=== PATIENT | female | born 1965 | race Caucasian/White ===

== ENCOUNTER 2017-07-07 11:08 | Inpatient (IN) | payer MEDICARE ==
[2017-07-07 12:59] LABS: Hematocrit 40 % (35-47); Hemoglobin 13.7 g/dl (12.0-16.0); Mean Corpuscular HGB Conc 34 g/dl (31-36); Mean Corpuscular Hemoglobin 29 pg (27-31); Mean Corpuscular Volume 84 fL (80-97); Mean Platelet Volume 8 um3 (7.4-10.4); Red Blood Count 4.77 10^6/ul (4.0-5.4); Red Cell Distribution Width 14 % (10.5-15); White Blood Count 9.6 10^3/ul (3.5-10.8)
[2017-07-07 13:06] LABS: Urine Bacteria 1+ (Absent); Urine Bilirubin Negative (Negative); Urine Glucose Negative (Negative); Urine Nitrite Negative (Negative)
[2017-07-07 13:10] LABS: Albumin 4.8 g/dL (3.2-5.2); BUN/Creatinine Ratio 18.8 (8-20); Calcium 10.1 mg/dL (8.6-10.3); EGFR African American 114.5 (>60); Globulin 3.3 g/dL (2-4); Magnesium 2.2 mg/dL (1.9-2.7); Potassium 3.3 mmol/L (3.5-5.0); Total Bilirubin 0.5 mg/dL (0.2-1.0); Total Protein 8.1 g/dL (6.4-8.9)
--- NOTE | 2017-07-07 13:27 | RAD ---
HISTORY: Suprapubic pain COMPARISONS: None VIEWS: Frontal views of the abdomen. FINDINGS: BOWEL: There is a nonobstructive bowel gas pattern. There is a large amount of stool within the colon. CALCULI: Calcifications are noted in the right hemipelvis, possibly related to calcified uterine fibroid BONES AND SOFT TISSUES: There are no osseous abnormalities. OTHER FINDINGS: The lung bases are clear. There is no subphrenic gas. IMPRESSION: 1. NONOBSTRUCTIVE BOWEL GAS PATTERN. LARGE AMOUNT STOOL WITHIN THE COLON. 2. RIGHT PELVIC CALCIFICATION, POSSIBLY RELATED TO CALCIFIED UTERINE FIBROID
[2017-07-07 13:44] LABS: TSH (Thyroid Stimulating Horm) 5.11 mcIU/mL (0.34-5.60)
[2017-07-07] MEDS ORDERED: Magnesium CITRATE* 300 ML BTL PO ONE (13:57)
--- NOTE | 2017-07-07 15:05 | ED ---
Kaushal Orozco Thomas, scribed for Alok Osman MD on 07/07/17 at 1216 . GI/ HPI - HPI Summary HPI Summary: The pt is a 51 y/o F presenting to the ED c/o urinary urgency with decreased urine production that began two days ago. She has been constipated for the last week, but this is normal for her. She says that she normally needs laxatives to defecate, and she has not yet taken laxatives for this constipation. She denies any abdominal pain separate from her inability to void. Pt additionally c/o generalized malaise, weakness, and vomiting (yesterday). Pt denies dysuria and nausea. PMHx: HTN. PSHx: appendectomy (2014). SHx: former smoker, occasional alcohol use, no illicit drug use. She is accompanied by two family members. - History of Current Complaint Chief Complaint: EDGeneral Time Seen by Provider: 07/07/17 11:27 Stated Complaint: WEAKNESS Hx Obtained From: Patient, Family/Chemistry Technician - two family members present Onset/Duration: Started Days Ago - onset two days ago, Still Present Timing: Constant Severity: Severe Pain Intensity: 2 Pain Characteristics: Other: - Pain associated with urinary urgency Associated Signs and Symptoms: Positive: Weakness, Vomiting - yesterday (none in the ED), Constipation - for the last week, and this is normal for her, Other : - POS: generalized malaise, urinary urgency. Negative: Nausea, Dysuria Aggravating Factor(s): Nothing Alleviating Factor(s): Nothing - Allergy/Home Medications Allergies/Adverse Reactions: Allergies Allergy/AdvReac Type Severity Reaction Status Date / Time Paroxetine [From Paxil] Allergy See Comment Verified 07/07/17 11:36 Home Medications: Home Medications Baclofen TAB* [Lioresal TAB*] 10 mg PO BID 07/07/17 [History Confirmed 07/07/17] FLUoxetine CAP* [Prozac CAP*] 1 cap PO .QAM 07/07/17 [History Confirmed 07/07/17 ] Gabapentin CAP(*) [Neurontin 300 CAP(*)] 300 mg PO TID 07/07/17 [History Confirmed 07/07/17] PMH/Surg Hx/FS Hx/Imm Hx Previously Healthy: No Endocrine/Hematology History: Denies: Hx Diabetes, Hx Thyroid Disease Cardiovascular History: Reports: Hx Hypertension Denies: Hx Pacemaker/ICD Respiratory History: Denies: Hx Asthma, Hx Chronic Obstructive Pulmonary Disease (COPD) GI History: Denies: Hx Ulcer History: Denies: Hx Renal Disease Sensory History: Denies: Hx Hearing Aid Psychiatric History: Denies: Hx Panic Disorder - Surgical History Surgery Procedure, Year, and Place: APPENDIX FALL 2014 Infectious Disease History: No Infectious Disease History: Denies: Hx Clostridium Difficile, Hx Hepatitis, Hx Human Immunodeficiency Virus (HIV), Hx of Known/Suspected MRSA, Hx Shingles, Hx Tuberculosis, Hx Known/ Suspected VRE, Hx Known/Suspected VRSA, History Other Infectious Disease, Traveled Outside the [place] in Last 30 Days - Family History Known Family History: Positive: Hypertension - Social History Alcohol Use: Occasionally Substance Use Type: Reports: None Substance Use Comment - Amount & Last Used: tramadol Smoking Status (MU): Former Smoker Have You Smoked in the Last Year: No Review of Systems Positive: Other - POS: generalized malaise Positive: Other - POS: constipation for the last week. Negative: Nausea Positive: urgency, other - POS: decreased urine production. Negative: dysuria Positive: Weakness All Other Systems Reviewed And Are Negative: Yes Physical Exam Triage Information Reviewed: Yes Vital Signs On Initial Exam: Initial Vitals Temp Pulse Resp BP Pulse Ox 99.4 F 77 16 141/72 96 07/07/17 11:25 07/07/17 11:25 07/07/17 11:25 07/07/17 11:25 07/07/17 11:25 Vital Signs Reviewed: Yes Appearance: Positive: Well-Appearing, No Pain Distress, Obese Skin: Positive: Warm, Skin Color Reflects Adequate Perfusion, Dry Head/Face: Positive: Normal Head/Face Inspection Eyes: Positive: Normal ENT: Positive: Normal ENT inspection Neck: Positive: Supple, Nontender Respiratory/Lung Sounds: Positive: Clear to Auscultation, Breath Sounds Present Cardiovascular: Positive: RRR Abdomen Description: Positive: Soft, Other: - She is tender in the lower abd and suprapubic area. Bowel Sounds: Positive: Present Musculoskeletal: Positive: Normal Neurological: Positive: Normal Psychiatric: Positive: Normal, Affect/Mood Appropriate - [place] Coma Scale Coma Scale Total: 15 Diagnostics - Vital Signs Vital Signs Temp Pulse Resp BP Pulse Ox 07/07/17 11:25 99.4 F 77 16 141/72 96 - Laboratory Lab Results: Lab Results 07/07/17 07/07/17 07/07/17 Range/Units 11:50 12:39 12:39 WBC 9.6 (3.5-10.8) 10^3/ul RBC 4.77 (4.0-5.4) 10^6/ul Hgb 13.7 (12.0-16.0) g/dl Hct 40 (35-47) % MCV 84 (80-97) fL MCH 29 (27-31) pg MCHC 34 (31-36) g/dl RDW 14 (10.5-15) % Plt Count 267 (150-450) 10^3/ul MPV 8 (7.4-10.4) um3 Neut % (Auto) 79.2 (38-83) % Lymph % (Auto) 14.2 L (25-47) % [place] % (Auto) 6.0 (1-9) % Eos % (Auto) 0.2 (0-6) % Baso % (Auto) 0.4 (0-2) % Absolute Neuts (auto) 7.6 (1.5-7.7) 10^3/ul Absolute Lymphs (auto) 1.4 (1.0-4.8) 10^3/ul Absolute Monos (auto) 0.6 (0-0.8) 10^3/ul Absolute Eos (auto) 0 (0-0.6) 10^3/ul Absolute Basos (auto) 0 (0-0.2) 10^3/ul Absolute Nucleated RBC 0 10^3/ul Nucleated RBC % 0 Sodium Pending Potassium 3.3 L (3.5-5.0) mmol/L Chloride 97 L (101-111) mmol/L Carbon Dioxide 33 H (22-32) mmol/L Anion Gap Pending BUN 13 (6-24) mg/dL Creatinine 0.69 (0.51-0.95) mg/dL Est GFR ( Amer) 114.5 (>60) Est GFR (Non-Af Amer) 89.0 (>60) BUN/Creatinine Ratio 18.8 (8-20) Glucose 91 (70-100) mg/dL Lactic Acid (0.5-2.0) mmol/L Calcium 10.1 (8.6-10.3) mg/dL Magnesium 2.2 (1.9-2.7) mg/dL Total Bilirubin 0.50 (0.2-1.0) mg/dL AST 51 H (13-39) U/L ALT 46 (7-52) U/L Alkaline Phosphatase 57 (34-104) U/L Troponin I 0.00 (<0.04) ng/mL Total Protein 8.1 (6.4-8.9) g/dL Albumin 4.8 (3.2-5.2) g/dL Globulin 3.3 (2-4) g/dL Albumin/Globulin Ratio 1.5 (1-3) TSH 5.11 (0.34-5.60) mcIU/mL Urine Color Yellow Urine Appearance Cloudy Urine pH 7.0 (5-9) Ur Specific [place] 1.014 (1.010-1.030) Urine Protein Negative (Negative) Urine Ketones Negative (Negative) Urine Blood 1+ H (Negative) Urine Nitrate Negative (Negative) Urine Bilirubin Negative (Negative) Urine Urobilinogen Negative (Negative) Ur Leukocyte Esterase 1+ H (Negative) Urine WBC (Auto) Trace(0-5/hpf) (Absent) Urine RBC (Auto) 1+(3-5/hpf) H (Absent) Ur Squamous Epith Cells Present H (Absent) Urine Bacteria 1+ H (Absent) Urine Glucose Negative (Negative) 07/07/17 Range/Units 12:39 WBC (3.5-10.8) 10^3/ul RBC (4.0-5.4) 10^6/ul Hgb (12.0-16.0) g/dl Hct (35-47) % MCV (80-97) fL MCH (27-31) pg MCHC (31-36) g/dl RDW (10.5-15) % Plt Count (150-450) 10^3/ul MPV (7.4-10.4) um3 Neut % (Auto) (38-83) % Lymph % (Auto) (25-47) % [place] % (Auto) (1-9) % Eos % (Auto) (0-6) % Baso % (Auto) (0-2) % Absolute Neuts (auto) (1.5-7.7) 10^3/ul Absolute Lymphs (auto) (1.0-4.8) 10^3/ul Absolute Monos (auto) (0-0.8) 10^3/ul Absolute Eos (auto) (0-0.6) 10^3/ul Absolute Basos (auto) (0-0.2) 10^3/ul Absolute Nucleated RBC 10^3/ul Nucleated RBC % Sodium Potassium (3.5-5.0) mmol/L Chloride (101-111) mmol/L Carbon Dioxide (22-32) mmol/L Anion Gap BUN (6-24) mg/dL Creatinine (0.51-0.95) mg/dL Est GFR ( Amer) (>60) Est GFR (Non-Af Amer) (>60) BUN/Creatinine Ratio (8-20) Glucose (70-100) mg/dL Lactic Acid 1.0 (0.5-2.0) mmol/L Calcium (8.6-10.3) mg/dL Magnesium (1.9-2.7) mg/dL Total Bilirubin (0.2-1.0) mg/dL AST (13-39) U/L ALT (7-52) U/L Alkaline Phosphatase (34-104) U/L Troponin I (<0.04) ng/mL Total Protein (6.4-8.9) g/dL Albumin (3.2-5.2) g/dL Globulin (2-4) g/dL Albumin/Globulin Ratio (1-3) TSH (0.34-5.60) mcIU/mL Urine Color Urine Appearance Urine pH (5-9) Ur Specific [place] (1.010-1.030) Urine Protein (Negative) Urine Ketones (Negative) Urine Blood (Negative) Urine Nitrate (Negative) Urine Bilirubin (Negative) Urine Urobilinogen (Negative) Ur Leukocyte Esterase (Negative) Urine WBC (Auto) (Absent) Urine RBC (Auto) (Absent) Ur Squamous Epith Cells (Absent) Urine Bacteria (Absent) Urine Glucose (Negative) Result Diagrams: 07/07/17 12:39 07/07/17 12:39 Lab Statement: Any lab studies that have been ordered have been reviewed, and results considered in the medical decision making process. - Radiology XR Abdo Xray Interpretation: Positive (See Comments) - 1. NONOBSTRUCTIVE BOWEL GAS PATTERN. LARGE AMOUNT STOOL WITHIN THE COLON. 2. RIGHT PELVIC CALCIFICATION, POSSIBLY RELATED TO CALCIFIED UTERINE FIBROID ED Physician has read this report and agrees. Radiology Interpretation Completed By: Radiologist - EKG 12:16 Cardiac Rate: NL - 77 BPM EKG Interpretation: NSR. Baseline artifact. GIGU Course/Dx - Course Course Of Treatment: Ms. Sofia Has gotten a lot weaker in the last two days and is unable to take care of herself. She came in for urinary frequency and was found to be in retention. A allen was placed and she is being admitted to the hospitalists with a neurology consult. - Diagnoses Provider Diagnoses: Urinary retention, Constipation Discharge - Discharge Plan Condition: Stable Disposition: HOME Patient Education Materials: Acute Urinary Retention in Women (ED), Constipation (ED) Referrals: [facility],Kushal Beltrán [Primary Care Provider] - 3 Days Additional Instructions: Follow up with your primary care provider in 3-4 days. Return to the emergency department for any new or worsening symptoms. The documentation as recorded by the Kaushal teresa Thomas accurately reflects the service I personally performed and the decisions made by me, Alok Osman MD.
[2017-07-07] MEDS ORDERED: Polyethylene Glycol 3350* 17 GM PACKET PO PRN (15:58)
[2017-07-07] MEDS ORDERED: Potassium Chlor TAB* 20 MEQ TAB.ER PO ONE (15:59)
--- NOTE | 2017-07-07 16:45 | RAD ---
INDICATION: Pneumonia COMPARISON: None TECHNIQUE: An AP portable view obtained at 1630 hours is submitted. FINDINGS: Bones/Soft Tissues: There are no acute bony findings. Cardiomediastinal: The cardiomediastinal silhouette is normal. Lungs: There are no infiltrates. Pleura: There are no pleural effusions. Other: None IMPRESSION: NO ACTIVE DISEASE.
[2017-07-07] MEDS: Enoxaparin(*) 40 MG/0.4 ML SYR SUBCUT SCH (17:12)
--- NOTE | 2017-07-07 18:01 | RAD ---
INDICATION: Pain and swelling. COMPARISON: None TECHNIQUE: Duplex interrogation of the Lowerextremity was performed. FINDINGS: Deep veins: The common femoral, great saphenous, profunda femoris, proximal, mid, and distal deep femoral, popliteal, posterior tibial, and peroneal veins are patent. There is normal compressibility, augmentation, and phasic flow. Evaluation the peroneal veins is limited Superficial veins: There are no findings of superficial thrombophlebitis. Popliteal fossa:There is no evidence of a popliteal cyst. Soft tissues:There are no soft tissue abnormalities. IMPRESSION: MILDLY LIMITED EXAMINATION. NO EVIDENCE OF DEEP VENOUS THROMBOSIS
[2017-07-07] MEDS: NS 0.9% 1000 ML* 1,000 ML IV SCH (19:10)
[2017-07-07] MEDS: Gabapentin CAP(*) 300 MG PO SCH (20:46)
[2017-07-07] MEDS: Baclofen TAB* 10 MG PO SCH (20:46)
--- NOTE | 2017-07-07 23:34 | HP ---
HISTORY AND PHYSICAL: DATE OF ADMISSION: 07/09/17 CHIEF COMPLAINT: Inability to urinate. HISTORY OF PRESENT ILLNESS: This is a 51-year-old female with a history of ALS , presenting with 1 day of urinary urgency and inability to empty her bladder. This has never happened to her before. She presented complaining of abdominal distention and bloating. Of note, she also reports a cold over the past week with cough productive of clear sputum, runny nose and she has been taking NyQuil , Mucinex, and [place] at home. She is not sure how much NyQuil and Mucinex she was taking; however, she noticed she was taking more than the recommended dose because she was feeling so ill. She also increased her tramadol dose because she has been unable to sleep. She also notes increasing weakness over the past week that has coincided with her upper respiratory infection. EMERGENCY DEPARTMENT COURSE: A Jolly catheter was placed which immediately drained 1500 cc of urine. PAST MEDICAL HISTORY: ALS diagnosed 1 year ago in July and hypertension. HOME MEDICATIONS: 1. Baclofen 10 mg b.i.d. 2. Fluoxetine 20 mg daily. 3. Gabapentin 300 mg t.i.d. 4. Hydrochlorothiazide 25 mg daily. 5. Naproxen 250 mg p.o. q.8 p.r.n. pain. Please note [id number] she was also taking Mucinex, NyQuil, and [place]. ALLERGIES: PAXIL. SOCIAL HISTORY: She lives at home with her . Of note, they recently have been staying in their camper because of her inability to ambulate in house. She quit smoking 2 years ago and she drinks occasionally, but has not been drinking recently. She wishes to be DNR and DNI. REVIEW OF SYSTEMS: Denies weight loss or weight gain. Does complain of sweats yesterday, no chills. Denies blurry vision. Denies dysphagia. Does complain of nausea and vomiting yesterday and poor appetite. Review of systems is also positive for constipation. No diarrhea. Positive for abdominal discomfort, which has now relieved. Positive for weakness. Negative for numbness and tingling. PHYSICAL EXAMINATION GENERAL: Alert, well-appearing, no distress. VITAL SIGNS: Temperature on admission 99.4, heart rate 77, respiratory rate 16 , pulse ox 96% on room air, blood pressure 141/72. HEENT: Pupils equal, round, and reactive to light. No sinus tenderness. No pharyngeal exudates or erythema. NECK: No cervical lymphadenopathy. No JVP. CHEST: Regular rate and rhythm. No murmurs. PMI nondisplaced. Rhonchi noted in left lung base. No wheezes. ABDOMEN: Soft, nontender, nondistended. Jolly catheter in place, draining clear urine. EXTREMITIES: No edema. No rashes. Lower extremity strength is 3/5 bilaterally , upper extremities are 5/5. DIAGNOSTIC STUDIES/LAB DATA: Labs on admission, hemoglobin 13.7, white blood cells 9.6, platelets 267. Sodium 137, potassium 3.3, chloride 97, bicarb 33, BUN 13, creatinine 0.69. Abdominal x-ray showed nonobstructive bowel gas pattern and the large amount of stool with the right pelvic calcification that may represent a fibroid. EKG normal sinus rhythm. Normal axis, normal intervals and no ST or T wave changes. ASSESSMENT AND PLAN: This is a 51-year-old female with history of amyotrophic lateral sclerosis and hypertension, presents with urinary urgency and inability to urinate for 1 day, found to have urinary retention in the emergency department. 1. Acute urinary retention. This may be related to her amyotrophic lateral sclerosis and I appreciate Neurology's input on this; however, I am also suspicious that this may be a medication side effect. She is on several medications that can cause urinary retention including [id number] cold medication, Baclofen and tramadol. A Jolly catheter is in place. Her blood pressure and electrolytes will need to be monitored closely for hypotension and postobstructive diuresis. If Neurology agrees that this is more likely to be medication related, we may be able to trial voiding tomorrow; however, if it is not related to her underlying neurologic dysfunction, she may need a longer duration of catheterization. 2. Amyotrophic lateral sclerosis. Neurology has been consulted. I am holding her baclofen for now. I am consulting Physical Therapy. 3. Hypertension. Continue HCTZ. 4. DVT prophylaxis, Lovenox. 5. I discussed her DNR status with her . She confirms that she would not want to be resuscitated or intubated. [id number]/[facility] #: [id number] [facility]
--- NOTE | 2017-07-08 01:21 | CONS ---
CC: Dr. Anna Cruz CONSULTATION REPORT: DATE OF CONSULT: 07/07/17 REASON FOR CONSULT: Increased weakness and urinary retention. HISTORY OF PRESENT ILLNESS: Iris Sofia is a 51-year-old woman with approximately 2- plus-year history of progressive weakness and spasticity in legs, greater than arms, who has had an extensive outpatient workup her with Dr. Cruz, and at [facility] with Dr. Mcnamara. She ultimately was diagnosed with ALS. She, at baseline, recently had been able to walk with a walker a few steps and was able to transfer. In the last week, there has been a progressive decline. She describes her feet turning inward and inability to stand and transfer. She also was found to have urinary retention in the emergency room of over a liter of fluid and indicates that in the last 6 months she has urinated in small amounts. In the setting of a cold this past week, she declined. She also used increased NyQuil. There was some tapering up of baclofen to 10 mg t.i.d., since her last Neurology appointment in the beginning of May (albeit this is of low dose). Given the profound change in her ability to transfer with increased weakness and her urinary retention, she was admitted to hospital. A Jolly was placed. When asked if she was involved with physical therapy recently, she has not been involved recently, and was not doing range of movement exercise at home. They do have MAFO boots for ankles. However, her admits to harder time using the boots secondary to footdrop and edema. PAST MEDICAL HISTORY: Iris Sofia's past medical history includes asthma, history of migraines and tinnitus, appendectomy, ovarian cyst, and glaucoma which had been followed. MEDICATIONS: Her medications as an outpatient included: 1. Gabapentin 300 mg p.o. t.i.d. 2. Fluoxetine 20 mg p.o. q. day. 3. Baclofen 10 mg p.o. t.i.d. 4. Hydrochlorothiazide 25 mg p.o. q. day. 5. Naproxen 500 mg p.o. b.i.d. 6. Proventil 2 puffs every 4 to 6 hours p.r.n. 7. Tramadol 50 mg every 4 hours as needed for pain. ALLERGIES: Include PAXIL caused a skin disturbance. FAMILY HISTORY: At this time is noncontributory. Her mom had diabetes, glaucoma, and high cholesterol. SOCIAL HISTORY: Ms. Sofia does not smoke. She stopped in May 2015. She rarely drinks alcohol. She lives with her . REVIEW OF SYSTEMS: There has been no change in vision. No new numbness of arms or legs. Weakness is as described above. There has been urinary retention. She has chronic constipation; this is unchanged. There has been no recent rash. She denies any fever; however, there has been cold with feeling congested in her head and her chest. There has been no chest pain, chest pressure, palpitations, shortness of breath. Her urinary frequency and amount of being able to excrete has changed as mentioned in the HPI. There has been no recent rash. She has joint pain, particularly in the ankles. PHYSICAL EXAM: Most recent vitals include a temperature of 98.1 degrees Fahrenheit, pulse of 78, respiratory rate 18, saturation 97%, and blood pressure was 122/68. She had a regular cardiac rhythm. Her lungs were clear to auscultation. She was awake, alert. There was some upper respiratory congestion. She appeared appropriately concerned, scared, and appreciative of care. She had normal language function, adequate fund of knowledge. Her pupils were equal and responsive to light. Her fundi were flat. She had full extraocular movements, but no nystagmus, full sweeney to confrontation. Her facial expression, sensation, and hearing were equal. Palate was upgoing. Tongue was midline. Sternocleidomastoid and trapezius were 5/5 in strength. No tongue fasciculations were noted. She had a mild bilateral pronator drift with weakness in the upper extremities of 4+ in all muscle groups proximally and distally including deltoid, biceps, triceps, intrinsic hand muscles. In her lower extremities, she had difficulty picking her legs off the bed with hip flexion weakness approximately of 1-2/5. Knee extension was 5-/5, foot dorsiflexion was 0/5, toe movement on the right was 1-2/5 and left 2-3/5 with contractures at the ankles with plantarflexion and inversion of feet. Vibration could be felt at the large toes. There was no asymmetry to pinprick, cold, or light touch, and no length-dependent changes. Proprioception was intact. Reflexes were 3+ at the biceps and brachioradialis, 2+ at the triceps, 3+ at the knees, and she had contractures at the ankles. Her toes were downgoing bilaterally. Gait could not be tested. She could not do coordination movements with her legs. There was no dysmetria in her arms. There was question of cords palpated in the distal lower extremities and she did have 1 to 2+ peripheral edema in the lower extremities. There was discomfort when gently evaluating range of movement at the ankles. DIAGNOSTIC STUDIES/LAB DATA: Includes CBC with normal white count, hemoglobin, hematocrit, platelets. Her metabolic panel showed a potassium slightly low at 3.3, chloride was 97, CO2 33. Her AST was elevated at 51, but liver function tests were otherwise normal. TSH was normal. Her urinalysis showed 1+ blood, 1 + esterase, trace white blood cells, 1+ red blood cells, 1+ bacteria. Her chest x-ray showed no active disease. Her abdominal x-ray showed large amount of stool, as well as pelvic calcification possibly secondary to uterine fibroid. ED provider's note was reviewed and I spoke directly to the ED provider. Other records include reviewing all of Dr. Cruz's outpatient records, as well as Dr. Mcnamara's consult in April 2017. She has previously had an MRI of the brain, cervical, and thoracic spine in 2016, which did not show any pathology to explain her decline. She had also previously had a lumbar puncture with normal protein, glucose, 1 band, no white blood cells or red blood cells. The consult by Dr. Mcnamara documents her extensive workup that I have printed and will include in her paper chart for reference, including a testing of sedimentation rate, C-reactive protein, copper, B12, methylmalonic acid, LEVON, anti-CCP, Lyme, SPEP, paraneoplastic panel, HIV serology, and celiac screen. 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 Please see this report for further details. IMPRESSION AND PLAN: Iris Sofia is a 51-year-old woman with over 2 years of progressive weakness and spasticity, now with significant change in the last week which has made it impossible for her to stand up and transfer. She has also had increased urinary retention and this occurs in the setting of a cold, increased NyQuil use, and taper upward of baclofen in her last meeting in early May with Dr. Cruz. It is possible there may be a superimposed urinary tract infection. There are mild changes in the urine and cultures are pending. Her NyQuil has been stopped in case excessive use was contributing to urinary retention. I have also reduced her baclofen to half dose in case this could contribute to some of her weakness. If she has worsening pain with reducing the baclofen, this may need to be increased. It appears in the past she has used tramadol as an outpatient. She and her need comprehensive work with PT, OT, and rehab with work of range of movement, reducing edema, education on range of movement, the importance of using MAFO boots. I spoke to Dr. Massey directly who is going to do a consult this weekend. I have spoken to the hospitalist team regarding CONNIE stockings and pneumatic TEDs, as well as doppler ultrasound to rule out DVT tonight. Because of her significant spasticity, I have also asked for CK to be performed. TIME SPENT: Over an hour and a half was spent in coordination of care, review of records, discussion with the patient and , and discussion with practitioners including hospitalist team, Dr. Massey, and Dr. Hamlin who will take over this evening. [id number]/[facility] #: [id number] JOE
[2017-07-08] MEDS: NS 0.9% 1000 ML* 1,000 ML IV SCH ×3 (03:17→21:33)
[2017-07-08 06:49] LABS: BUN/Creatinine Ratio 17.8 (8-20); Calcium 9.1 mg/dL (8.6-10.3); EGFR African American 61.6 (>60); EGFR Non-African American 47.9 (>60); Potassium 3.2 mmol/L (3.5-5.0)
[2017-07-08 06:57] LABS: Hematocrit 37 % (35-47); Hemoglobin 12.3 g/dl (12.0-16.0); Mean Corpuscular HGB Conc 34 g/dl (31-36); Mean Corpuscular Hemoglobin 29 pg (27-31); Mean Corpuscular Volume 86 fL (80-97); Mean Platelet Volume 8 um3 (7.4-10.4); Red Blood Count 4.24 10^6/ul (4.0-5.4); Red Cell Distribution Width 14 % (10.5-15); White Blood Count 5.8 10^3/ul (3.5-10.8)
[2017-07-08] MEDS: FLUoxetine CAP* 20 MG PO SCH (08:15)
[2017-07-08] MEDS: Hydrochlorothiazide TAB* 25 MG PO SCH (08:15)
[2017-07-08] MEDS: Baclofen TAB* 10 MG PO SCH ×3 (08:16→21:34)
[2017-07-08] MEDS: Gabapentin CAP(*) 300 MG PO SCH ×3 (08:16→21:34)
[2017-07-08] MEDS: Naproxen TAB* 250 MG PO PRN ×2 (08:21→16:21)
[2017-07-08] MEDS: Bisacodyl EC TAB* 5 MG PO PRN (08:25)
--- NOTE | 2017-07-08 12:10 | PN ---
Subjective Date of Service: 07/08/17 Interval History: Ms. Sofia remains weaker than at baseline. She reports being unable to stand with PT today whereas normally she can take a step or two to use a bedside commode at home. She denies other complaint including chest pain, SOB, nausea, or abdominal pain. Objective Active Medications: Baclofen (Lioresal Tab*) 5 mg PO TID YAZMIN Bisacodyl (Dulcolax Ec Tab*) 10 mg PO DAILY PRN Enoxaparin Sodium (Lovenox(*)) 40 mg SUBCUT Q24H YAZMIN Fluoxetine HCl (Prozac Cap*) 20 mg PO QAM YAZMIN Gabapentin (Neurontin Cap(*)) 300 mg PO TID YAZMIN Hydrochlorothiazide (Hydrodiuril Tab*) 25 mg PO DAILY YAZMIN Sodium Chloride (Ns 0.9% 1000 Ml*) 1,000 mls @ 125 mls/hr IV PER RATE YAZMIN Naproxen (Naprosyn Tab*) 500 mg PO Q8H PRN Polyethylene Glycol/Electrolytes (Miralax*) 17 gm PO DAILY PRN Vital Signs 07/07/17 07/07/17 07/07/17 15:26 16:02 19:58 Temperature 98.1 F 98.1 F 98.4 F Pulse Rate 73 73 84 Respiratory 18 18 20 Rate Blood Pressure 122/68 122/68 137/61 (mmHg) O2 Sat by Pulse 97 97 95 Oximetry 07/07/17 07/07/17 07/07/17 20:46 22:46 23:29 Temperature 98.6 F Pulse Rate 66 Respiratory 18 18 14 Rate Blood Pressure 122/55 (mmHg) O2 Sat by Pulse 94 Oximetry 07/08/17 07/08/17 07/08/17 03:41 06:59 08:16 Temperature 98.4 F 98.1 F Pulse Rate 66 75 Respiratory 18 16 18 Rate Blood Pressure 118/64 141/74 (mmHg) O2 Sat by Pulse 97 96 Oximetry Oxygen Devices in Use Now: None Appearance: Female lying in bed in NAD Eyes: No Scleral Icterus Ears/Nose/Mouth/Throat: Mucous Membranes Moist Neck: NL Appearance and Movements; NL JVP, Trachea Midline Respiratory: Symmetrical Chest Expansion and Respiratory Effort, - - Wheezing in bases Cardiovascular: NL Sounds; No Murmurs; No JVD, No Edema Abdominal: NL Sounds; No Tenderness; No Distention Lymphatic: No Cervical Adenopathy Skin: No Rash or Ulcers Neurological: Alert and Oriented x 3, - - generalized weakness Nutrition: Taking PO's Result Diagrams: 07/08/17 06:42 07/08/17 06:20 Additional Lab and Data: Lab Results 07/07/17 07/07/17 07/07/17 Range/Units 11:50 12:39 12:39 WBC 9.6 (3.5-10.8) 10^3/ul RBC 4.77 (4.0-5.4) 10^6/ul Hgb 13.7 (12.0-16.0) g/dl Hct 40 (35-47) % MCV 84 (80-97) fL MCH 29 (27-31) pg MCHC 34 (31-36) g/dl RDW 14 (10.5-15) % Plt Count 267 (150-450) 10^3/ul MPV 8 (7.4-10.4) um3 Neut % (Auto) 79.2 (38-83) % Lymph % (Auto) 14.2 L (25-47) % [place] % (Auto) 6.0 (1-9) % Eos % (Auto) 0.2 (0-6) % Baso % (Auto) 0.4 (0-2) % Absolute Neuts (auto) 7.6 (1.5-7.7) 10^3/ul Absolute Lymphs (auto) 1.4 (1.0-4.8) 10^3/ul Absolute Monos (auto) 0.6 (0-0.8) 10^3/ul Absolute Eos (auto) 0 (0-0.6) 10^3/ul Absolute Basos (auto) 0 (0-0.2) 10^3/ul Absolute Nucleated RBC 0 10^3/ul Nucleated RBC % 0 Sodium Pending Potassium 3.3 L (3.5-5.0) mmol/L Chloride 97 L (101-111) mmol/L Carbon Dioxide 33 H (22-32) mmol/L Anion Gap Pending BUN 13 (6-24) mg/dL Creatinine 0.69 (0.51-0.95) mg/dL Est GFR ( Amer) 114.5 (>60) Est GFR (Non-Af Amer) 89.0 (>60) BUN/Creatinine Ratio 18.8 (8-20) Glucose 91 (70-100) mg/dL Lactic Acid (0.5-2.0) mmol/L Calcium 10.1 (8.6-10.3) mg/dL Magnesium 2.2 (1.9-2.7) mg/dL Total Bilirubin 0.50 (0.2-1.0) mg/dL AST 51 H (13-39) U/L ALT 46 (7-52) U/L Alkaline Phosphatase 57 (34-104) U/L Troponin I 0.00 (<0.04) ng/mL Total Protein 8.1 (6.4-8.9) g/dL Albumin 4.8 (3.2-5.2) g/dL Globulin 3.3 (2-4) g/dL Albumin/Globulin Ratio 1.5 (1-3) TSH 5.11 (0.34-5.60) mcIU/mL Urine Color Yellow Urine Appearance Cloudy Urine pH 7.0 (5-9) Ur Specific [place] 1.014 (1.010-1.030) Urine Protein Negative (Negative) Urine Ketones Negative (Negative) Urine Blood 1+ H (Negative) Urine Nitrate Negative (Negative) Urine Bilirubin Negative (Negative) Urine Urobilinogen Negative (Negative) Ur Leukocyte Esterase 1+ H (Negative) Urine WBC (Auto) Trace(0-5/hpf) (Absent) Urine RBC (Auto) 1+(3-5/hpf) H (Absent) Ur Squamous Epith Cells Present H (Absent) Urine Bacteria 1+ H (Absent) Urine Glucose Negative (Negative) 07/07/17 Range/Units 12:39 WBC (3.5-10.8) 10^3/ul RBC (4.0-5.4) 10^6/ul Hgb (12.0-16.0) g/dl Hct (35-47) % MCV (80-97) fL MCH (27-31) pg MCHC (31-36) g/dl RDW (10.5-15) % Plt Count (150-450) 10^3/ul MPV (7.4-10.4) um3 Neut % (Auto) (38-83) % Lymph % (Auto) (25-47) % [place] % (Auto) (1-9) % Eos % (Auto) (0-6) % Baso % (Auto) (0-2) % Absolute Neuts (auto) (1.5-7.7) 10^3/ul Absolute Lymphs (auto) (1.0-4.8) 10^3/ul Absolute Monos (auto) (0-0.8) 10^3/ul Absolute Eos (auto) (0-0.6) 10^3/ul Absolute Basos (auto) (0-0.2) 10^3/ul Absolute Nucleated RBC 10^3/ul Nucleated RBC % Sodium Potassium (3.5-5.0) mmol/L Chloride (101-111) mmol/L Carbon Dioxide (22-32) mmol/L Anion Gap BUN (6-24) mg/dL Creatinine (0.51-0.95) mg/dL Est GFR ( Amer) (>60) Est GFR (Non-Af Amer) (>60) BUN/Creatinine Ratio (8-20) Glucose (70-100) mg/dL Lactic Acid 1.0 (0.5-2.0) mmol/L Calcium (8.6-10.3) mg/dL Magnesium (1.9-2.7) mg/dL Total Bilirubin (0.2-1.0) mg/dL AST (13-39) U/L ALT (7-52) U/L Alkaline Phosphatase (34-104) U/L Troponin I (<0.04) ng/mL Total Protein (6.4-8.9) g/dL Albumin (3.2-5.2) g/dL Globulin (2-4) g/dL Albumin/Globulin Ratio (1-3) TSH (0.34-5.60) mcIU/mL Urine Color Urine Appearance Urine pH (5-9) Ur Specific [place] (1.010-1.030) Urine Protein (Negative) Urine Ketones (Negative) Urine Blood (Negative) Urine Nitrate (Negative) Urine Bilirubin (Negative) Urine Urobilinogen (Negative) Ur Leukocyte Esterase (Negative) Urine WBC (Auto) (Absent) Urine RBC (Auto) (Absent) Ur Squamous Epith Cells (Absent) Urine Bacteria (Absent) Urine Glucose (Negative) Assess/Plan/Problems-Billing Assessment: Ms. Sofia is a 51 yo female with a PMH of ALS who was admitted on 9/15/17 with urinary retention and weakness in setting of cold and Nyquil use. - Patient Problems (1) Urinary retention Comment: - Allen in place, draining well. - Suspect secondary to nyquil and perhaps baclofen. Baclofen was reduced. Patient advised again Nyquil use. - Will need to continue allen for 7-10 days as had significant bladder distention. (2) ALS (amyotrophic lateral sclerosis) Comment: - Appreciate consultation from Dr. Vila. - PT/OT ordered. Has had significant decline with recent cold. (3) Asthma Comment: - Patient had recent cold, now with wheezing. - Add albuterol prn. (4) Edema Comment: - No evidence of DVT. (5) DVT prophylaxis (6) DNR (do not resuscitate) Comment: OBV.
[2017-07-08] MEDS ORDERED: Albuterol HFA INHALER* 8 gm MDI INH PRN (12:53)
[2017-07-08] MEDS: Enoxaparin(*) 40 MG/0.4 ML SYR SUBCUT SCH (16:18)
--- NOTE | 2017-07-08 22:08 | CONS ---
INPATIENT PAIN CONSULTATION: DATE OF CONSULTATION: 07/08/17 REQUESTING PHYSICIAN: Dr. Jasmina Vila. REASON FOR CONSULTATION: Inability to ambulate and transfer. HISTORY OF ILLNESS: Iris Sofia is a 51-year-old female. She has had ALS, which was originally diagnosed over the summer. She had a roughly 2-year history of lower extremity spasticity and progressive weakness. She had an extensive outpatient workup first with Dr. Cruz and second at the [facility] with Dr. Cornelia Mcnamara. The patient until recently was able to transfer by herself and ambulate with a walker 5 to 10 feet. She has contractures at both ankles and so tended to walk on the tips of her toes. In the last week, there has been a rapid decline in functions. She had an inability to stand and transfer. Her bought ankle supports about a few weeks ago, but they have not helped. The patient was also having some difficulty voiding. She was brought to the emergency room and she was found to have urinary retention. Of note, over this summer, an attempt to treat her spasticity with baclofen was started. She was put up to 10 mg 3 times a day. It did not seem to have a great effect on her spasticity. I am asked to see the patient for consultation because of her decrease in function. PAST MEDICAL HISTORY: Significant for asthma. She also has a history of migraine headaches. She has had an appendectomy. CURRENT MEDICATIONS: Include: 1. Baclofen 5 mg 3 times a day. 2. Prozac 20 mg daily for pseudobulbar symptoms. 3. Neurontin 300 mg three times a day. 4. Hydrochlorothiazide and Naprosyn. ALLERGIES: PAROXETINE. SOCIAL HISTORY: She is a nonsmoker, nondrinker. She lives in a two-yousuf colonial house with 2 steps to enter. She also used to spend time in [place]. In the past few weeks, she has been spending a lot of time in her camper because they were preparing to go to [place]. PHYSICAL EXAM: The patient's temperature is 98.4, blood pressure is 123/63, pulse 77, respirations 18. HEENT: Her extraocular movements appeared to be intact. Lungs sounded clear to auscultation bilaterally. Heart sounds are regular. S1 and S2 are audible. Abdomen is soft and nontender. Her lower extremities have significantly increased tone. I was able to bend both knees, but she had plantar flexion contractures at both ankles and I could not bring them to neutral even with significant force. She had edema at both ankles. Neurologic: She was awake, alert and oriented. Muscle strength in her upper extremities appear to be about 4+/5 for biceps and 4/5 with triceps. Her triceps were significantly weaker than her biceps. Hand manager database administration was about 4+/5, wrist extension and flexion were about 4+/5. Her lower extremities had significantly less strength. Her legs were about 3/5 for hip flexion, quadriceps about 3/5. Her hamstrings were having a lot trouble overriding her tone and obviously dorsiflexion was difficulty overriding the tone. ASSESSMENT: Amyotrophic lateral sclerosis with increased tone in her lower extremities. PLAN: I do not think the current ankle brace that she has are doing much if anything. I do not know that we could get her into an ankle foot orthosis given her significant spasticity. We might have to try Botox injections into her calf muscles. Even then, I am not sure we could get her into an AFO. As far as her functional abilities, I think at this point, we might be able to do a slide board transfer, although her abdominal muscles appear to be quite weak. I am not sure whether the baclofen at the current dose is doing much. Perhaps , we could try tizanidine if baclofen is not successful or she is not going to tolerate it. A short stay on the inpatient rehab unit might be beneficial to work on slide board transfers and assist her in learning how best to keep her functional. Again, I am not sure she has the abdominal strength to use a slide board. Physical Therapy is already involved. I will be back to see the patient tomorrow to see how she is doing. Thank you for the consult. [id number]/[facility] #: [id number] JOE
--- NOTE | 2017-07-08 23:14 | PN ---
PROGRESS NOTE: DATE OF PROGRESS NOTE: 07/08/17 LOCATION: He is currently in [facility], bed 1. SUBJECTIVE: Overnight, she has had no new issues. Her did bring her AFO boots and she is wearing them and states that it does help her symptoms. She is not having any lower extremity pain, but continues to have lower extremity weakness , which she states is greater than normal. She has had no additional issues emptying her bladder, but she has not had a bowel movement in over a week and feels distended. Her upper respiratory symptoms are improved. She is taking good p.o. and denies any problems swallowing. She denies any problems breathing. I did review her records including the consultation from Dr. Vila yesterday. She was diagnosed with ALS over 2 years ago and is followed by Dr. Cruz and Dr. Mcnamara at [facility]. She noted on admission that she has not been proactive with her physical therapy at home, has not been proactive with her AFO boots, and has had more contractions in her feet. Her weakness seemed to develop rather suddenly when she developed her upper respiratory infection and started using NyQuil. She also had some urinary retention at that time that has since been discontinued. In addition, her baclofen was lowered yesterday from 10 mg t.i.d. to 5 mg t.i.d. She has had no worsening spasticity or pain, but has had no significant improvement in her weakness. OBJECTIVE: Vital Signs: She has been afebrile. Blood pressure is from 120s to 141 systolic/50s to 70s diastolic, well controlled, pulse rate of 75, running in the 60s to 70s, respiratory rate 16 to 18, pulse ox 94% to 96%. In general, she is a well-nourished, obese female, lying in her hospital bed. She is pleasant, well dressed, well groomed. HEENT: Normocephalic, atraumatic. Sclerae anicteric. Mucous membranes are moist. Her oropharynx is clear. Neck: Supple. Chest: Clear to auscultation bilaterally. Cardiovascular: Regular rate and rhythm. No murmurs. Abdomen: Obese, somewhat distended, nontender. Extremities: She has some 1+ nonpitting edema in the lower extremities to the knees bilaterally. Skin: Warm and dry without any lesions or rashes. Neurologic Exam: She is awake, alert, oriented x3. Her speech is fluent. There is no dysarthria. Cranial nerves, pupils are equal , round, and reactive to light. Extraocular muscles are intact. Visual sweeney are full. Face is symmetric. Sensation is intact. Hearing is intact. Tongue is midline. Palate is symmetric. She does move her upper extremities with good resistance 5/5. In the lower extremity, she has difficult time lifting her legs off the bed. Proximally, she has 1/5 bilaterally and distally, her knee extension 4/5. Dorsiflexion was 0/5. She has some toe movement, but is currently in AFO boots. She has intact light touch, pinprick in the lower extremities. Reflexes were 2+ at the biceps, 2+ at the brachioradialis, 2+ at the triceps, and 2+ at the patella bilaterally. Could not test gait. There is no tremor noted. DIAGNOSTIC STUDIES/LAB DATA: Lab work shows a normal CBC with diff. Potassium of 3.2, creatinine of 1.18 this morning, glucose of 111. Her total creatine kinase 541. Urine showed 1+ blood, 1+ leukocyte esterase, 1+ bacteria. Venous Doppler was negative for DVT. Chest x-ray, no active disease. ASSESSMENT AND PLAN: Ms. Sofia is a 51-year-old female with a history of amyotrophic lateral sclerosis, who has been relatively stable and at baseline, has profound lower extremity weakness, able to ambulate minimally with a walker, but over the last week, developed an upper respiratory infection and became unable to walk and felt that her weakness had progressed. She was having some urinary retention as well. NyQuil was stopped and her baclofen was reduced overnight to 5 mg t.i.d. with a thought that this may help some of her weakness. She has not had any worsening spasticity since lowering the dose. I had a long discussion with her today. She admits that she has been noncompliant with her physical therapy. She has not been wearing her AFOs. We discussed the fact that at this point, she needs intense PT to help maintain and possibly regain some function, although we did discuss the fact that she will continue to have progressive weakness. Dr. Vila did speak with PM and R in the hope that they can work with her and at least preserve some motor function and strength in short-term and preserve her ability to ambulate as much as possible and transfer. Her CPK is elevated, but this is often the case with amyotrophic lateral sclerosis and I see no evidence of rhabdo at this point. We will continue her baclofen at 5 mg p.o. t.i.d. and monitor her closely. PM and R to see her. Once they have a plan in place, she will either go to inpatient rehab or have intense physical therapy as an outpatient. I will continue to follow her. [id number]/[facility] #: [id number] JOE
[2017-07-09] MEDS: NS 0.9% 1000 ML* 1,000 ML IV SCH ×2 (05:56→13:56)
[2017-07-09 06:04] LABS: BUN/Creatinine Ratio 24.6 (8-20); Calcium 8.7 mg/dL (8.6-10.3); EGFR African American 131.9 (>60); EGFR Non-African American 102.6 (>60); Potassium 3.6 mmol/L (3.5-5.0)
--- NOTE | 2017-07-09 07:51 | PN ---
Subjective Date of Service: 07/09/17 Interval History: Ms. Sofia states that she is feeling well today other than a nonproductive cough. She remains generally weak. She was seen by PT yesterday who recommended that she transfer with EZ stand. She denies other complaint including chest pain, SOB, nausea, or abdominal pain. Objective Active Medications: Albuterol (Ventolin Hfa Inhaler*) 2 puff INH Q4H PRN Baclofen (Lioresal Tab*) 5 mg PO TID YAZMIN Bisacodyl (Dulcolax Ec Tab*) 10 mg PO DAILY PRN Enoxaparin Sodium (Lovenox(*)) 40 mg SUBCUT Q24H YAZMIN Fluoxetine HCl (Prozac Cap*) 20 mg PO QAM YAZMIN Gabapentin (Neurontin Cap(*)) 300 mg PO TID YAZMIN Hydrochlorothiazide (Hydrodiuril Tab*) 25 mg PO DAILY YAZMIN Sodium Chloride (Ns 0.9% 1000 Ml*) 1,000 mls @ 125 mls/hr IV PER RATE YAZMIN Naproxen (Naprosyn Tab*) 500 mg PO Q8H PRN Polyethylene Glycol/Electrolytes (Miralax*) 17 gm PO DAILY PRN Vital Signs 07/08/17 07/08/17 07/08/17 08:16 10:16 12:45 Temperature Pulse Rate Respiratory 18 18 18 Rate Blood Pressure (mmHg) O2 Sat by Pulse Oximetry 07/08/17 07/08/17 07/08/17 14:45 16:16 19:24 Temperature 98.4 F 99.1 F Pulse Rate 77 77 Respiratory 18 18 20 Rate Blood Pressure 123/63 126/56 (mmHg) O2 Sat by Pulse 96 95 Oximetry 07/08/17 07/08/17 07/09/17 21:34 23:34 00:01 Temperature 98.2 F Pulse Rate 74 Respiratory 16 16 16 Rate Blood Pressure 133/62 (mmHg) O2 Sat by Pulse 95 Oximetry 07/09/17 03:36 Temperature 98.2 F Pulse Rate 62 Respiratory 16 Rate Blood Pressure 123/63 (mmHg) O2 Sat by Pulse 95 Oximetry Oxygen Devices in Use Now: None Appearance: Female lying in bed in NAD Eyes: No Scleral Icterus Ears/Nose/Mouth/Throat: Mucous Membranes Moist Neck: Trachea Midline Respiratory: Symmetrical Chest Expansion and Respiratory Effort, - - Wheezing bilaterally Cardiovascular: NL Sounds; No Murmurs; No JVD, No Edema Abdominal: NL Sounds; No Tenderness; No Distention Lymphatic: No Cervical Adenopathy Extremities: No Edema Skin: No Rash or Ulcers Neurological: Alert and Oriented x 3, NL Muscle Strength and Tone Nutrition: Taking PO's Result Diagrams: 07/08/17 06:42 07/09/17 05:12 Assess/Plan/Problems-Billing Assessment: Ms. Sofia is a 51 yo female with a PMH of ALS who was admitted on 07/07/17 with urinary retention and weakness in setting of cold and Nyquil use. - Patient Problems (1) Urinary retention Comment: - Allen in place, draining well. - Suspect secondary to nyquil and perhaps baclofen. Baclofen was reduced. Patient advised against Nyquil use. - Will need to continue allen for 7-10 days as had significant bladder distention. (2) ALS (amyotrophic lateral sclerosis) Comment: - Appreciate consultation from Dr. Vila. - PT/OT ordered. Has had significant decline with recent cold and is not able to transfer independendently, currently needs EZ stand. PT recommends multi podus boots and custom fitted orthotics outpatient to prevent contractures and optimize mobility. (3) Asthma Comment: - Patient had recent cold, now with wheezing. - Albuterol nebs this AM, if not better may consider adding prednisone. (4) Edema Comment: - No evidence of DVT. (5) DVT prophylaxis Comment: - Lovenox. (6) DNR (do not resuscitate) Status and Disposition: Switch to inpatient with need for further rehab. Remain hopeful for discharge to home when is adequately independent with mobility for family to continue to care for her.
[2017-07-09] MEDS: Gabapentin CAP(*) 300 MG PO SCH ×3 (08:24→20:19)
[2017-07-09] MEDS: Baclofen TAB* 10 MG PO SCH ×3 (08:24→20:19)
[2017-07-09] MEDS: Hydrochlorothiazide TAB* 25 MG PO SCH (08:24)
[2017-07-09] MEDS: FLUoxetine CAP* 20 MG PO SCH (08:24)
[2017-07-09] MEDS: Bisacodyl EC TAB* 5 MG PO PRN (08:29)
[2017-07-09] MEDS ORDERED: Albuterol 2.5 MG/3 ML NEB.SOL* (0.083%) INH PRN (09:36)
[2017-07-09] MEDS ORDERED: Albuterol 2.5 MG/3 ML NEB.SOL* (0.083%) ONE (09:42)
[2017-07-09] MEDS ORDERED: Influenza VAC *QUAD* 2017-18* 0.5 ML SYRINGE IM ONE (11:00)
[2017-07-09] MEDS: Enoxaparin(*) 40 MG/0.4 ML SYR SUBCUT SCH (16:51)
--- NOTE | 2017-07-09 21:33 | PN ---
PROGRESS NOTE: DATE OF PROGRESS NOTE: 07/09/17 LOCATION: She is currently in 411, bed 1. SUBJECTIVE: No issues overnight. She remains weak, but has not worsened. She continues to have a mild cough, states it is better with breathing treatment. Her urinary retention has improved. She denies any problem swallowing. No new focal or generalized weakness reported. She was seen by PM and R yesterday and I did review their notes. OBJECTIVE: Vital Signs: Temp this morning of 98.1, pulse is 70, respiratory rate is 16, pulse ox 95%, . Yesterday, at 7 p.m., she had a temp of 99.1, but otherwise has been afebrile. In general, she is a well-nourished, well- developed, obese female, lying in her bed comfortable. Normocephalic, atraumatic. Sclerae are anicteric. Mucous membranes are moist. Oropharynx is clear. Chest has some diffuse wheezes bilaterally. No coarse breath sounds appreciated. Cardiovascular: Regular rate and rhythm. Abdomen: Obese, nontender. Extremities: 1+ edema in the lower extremities bilaterally, non- pitting. Neurologic Exam: Awake, alert and oriented x3. Speech is fluent. No dysarthria. Cranial Nerves: Pupils are equal, round, and reactive to light. Extraocular muscles are intact. Visual sweeney are full. Face is symmetric. Sensation is intact. Hearing is intact bilaterally. Tongue is midline. Palate elevates symmetrically. Motor Exam: She has good strength in the upper extremities, 5/5, proximally and distally. In the lower extremities, she has minimal leg raise off the bed with some resistance, 4-/5, proximally. She has 0/5 dorsiflexion, minimal plantar flexion, but has contractures in her feet bilaterally with inversion. Sensation is grossly intact to light touch and pinprick in the upper and lower extremities. DTRs are 2+ in the upper extremities bilaterally at the biceps and brachioradialis; in the patella, she is 3+; ankles are absent. Gait cannot be tested. She is unable to ambulate. ASSESSMENT AND PLAN: Ms. Sofia is a 51-year-old female with a history of amyotrophic lateral sclerosis, it is progressing, has had an acute change several days ago after an upper respiratory illness. Initially, had some urinary retention, on NyQuil, that seems to have improved. She is having some mild wheezing. No significant shortness of breath, but is getting neb treatment. From the spasticity standpoint, her baclofen, she has had no significant worsening on the lower dose of baclofen. I would like to continue her on this dose. At this point, CARLITOS chew R recommended we might try tizanidine as well, but we will hold for now. From the urinary retention standpoint, she has a Jolly catheter in place. CARLITOS chew R has seen her and is evaluating for possible inpatient rehab and we will continue to follow her. At this point, supportive care. No new recommendations and I will continue to follow her. [id number]/[facility] #: [id number] MTDD
[2017-07-10] MEDS: NS 0.9% 1000 ML* 1,000 ML IV SCH ×3 (00:16→19:29)
[2017-07-10] MEDS: Hydrochlorothiazide TAB* 25 MG PO SCH (07:33)
[2017-07-10] MEDS: Baclofen TAB* 10 MG PO SCH ×3 (07:34→22:10)
[2017-07-10] MEDS: Gabapentin CAP(*) 300 MG PO SCH ×3 (07:34→22:10)
[2017-07-10] MEDS: FLUoxetine CAP* 20 MG PO SCH (07:34)
[2017-07-10] MEDS: Naproxen TAB* 250 MG PO PRN (14:42)
[2017-07-10] MEDS: Enoxaparin(*) 40 MG/0.4 ML SYR SUBCUT SCH (14:43)
--- NOTE | 2017-07-10 15:04 | PN ---
Subjective Date of Service: 07/10/17 Interval History: Ms. Sofia states that she is feeling somewhat better today. She was able to bear weight for transfer with assistance times 2. She also feels that her breathing is better and she feels less wheezy. She denies other complaint and is tolerating oral intake well. I spoke with her about discharge and she is hopeful to be able to go to [facility] for further rehab. Objective Active Medications: Albuterol (Ventolin Hfa Inhaler*) 2 puff INH Q4H PRN Albuterol (Ventolin 2.5 Mg/3 Ml Neb.Bette*) 2.5 mg INH Q4H PRN Baclofen (Lioresal Tab*) 5 mg PO TID YAZMIN Bisacodyl (Dulcolax Ec Tab*) 10 mg PO DAILY PRN Enoxaparin Sodium (Lovenox(*)) 40 mg SUBCUT Q24H YAZMIN Fluoxetine HCl (Prozac Cap*) 20 mg PO QAM YAZMIN Gabapentin (Neurontin Cap(*)) 300 mg PO TID YAZMIN Hydrochlorothiazide (Hydrodiuril Tab*) 25 mg PO DAILY YAZMIN Sodium Chloride (Ns 0.9% 1000 Ml*) 1,000 mls @ 125 mls/hr IV PER RATE YAZMIN Naproxen (Naprosyn Tab*) 500 mg PO Q8H PRN Polyethylene Glycol/Electrolytes (Miralax*) 17 gm PO DAILY PRN Vital Signs: Temp Pulse Resp BP Pulse Ox 98.0 F 71 16 148/78 97 07/10/17 07:32 07/10/17 07:32 07/10/17 14:37 07/10/17 04:04 07/10/17 07:32 Oxygen Devices in Use Now: None Appearance: Female sitting up in chair in NAD Eyes: No Scleral Icterus Ears/Nose/Mouth/Throat: Mucous Membranes Moist Neck: Trachea Midline Respiratory: Symmetrical Chest Expansion and Respiratory Effort, Clear to Auscultation Cardiovascular: NL Sounds; No Murmurs; No JVD, No Edema Abdominal: NL Sounds; No Tenderness; No Distention Lymphatic: No Cervical Adenopathy Extremities: No Edema Skin: No Rash or Ulcers Neurological: Alert and Oriented x 3, NL Muscle Strength and Tone Nutrition: Taking PO's Result Diagrams: 07/08/17 06:42 07/09/17 05:12 Additional Lab and Data: . Assess/Plan/Problems-Billing Assessment: Ms. Sofia is a 51 yo female with a PMH of ALS who was admitted on 07/07/17 with urinary retention and weakness in setting of cold and Nyquil use. - Patient Problems (1) Urinary retention Comment: - Allen in place, draining well. - Suspect secondary to nyquil and perhaps baclofen. Baclofen was reduced. Patient advised against Nyquil use. - Will need to continue allen for 7-10 days as had significant bladder distention. (2) ALS (amyotrophic lateral sclerosis) Comment: - Appreciate consultation from Dr. Vila. - PT/OT ordered. Has had significant decline with recent cold and is not able to transfer independendently, currently needs EZ stand. PT recommends multi podus boots and custom fitted orthotics outpatient to prevent contractures and optimize mobility. (3) Asthma Comment: - Much improved, continue albuterol MDI prn. (4) Edema Comment: - No evidence of DVT. (5) DVT prophylaxis Comment: - Lovenox. (6) DNR (do not resuscitate) Status and Disposition: Inpatient. PMRU referral made, awaiting decision.
[2017-07-10] MEDS ORDERED: Senna TAB PO ONE (15:06)
[2017-07-10] MEDS ORDERED: Docusate CAP* 100 MG PO PRN (15:06)
[2017-07-10] MEDS ORDERED: Sodium Phosphate ADULT ENEMA* 118 ml bottle PR PRN (15:07)
[2017-07-11] MEDS: NS 0.9% 1000 ML* 1,000 ML IV SCH (03:39)
[2017-07-11 07:26] VITALS: BP 153/79
[2017-07-11] MEDS: Baclofen TAB* 10 MG PO SCH (10:00)
[2017-07-11] MEDS: Gabapentin CAP(*) 300 MG PO SCH (10:01)
[2017-07-11] MEDS: FLUoxetine CAP* 20 MG PO SCH (10:01)
[2017-07-11] MEDS: Hydrochlorothiazide TAB* 25 MG PO SCH (10:01)
--- NOTE | 2017-07-11 10:33 | PN ---
Subjective Date of Service: 07/11/17 Interval History: Patient seen and examined at bedside. Patient states she feels stronger than yesterday. Denies any shortness of breath. Family History: Unchanged from Admission Social History: Unchanged from Admission Past Medical History: Unchanged from Admission Objective Active Medications: Albuterol (Ventolin Hfa Inhaler*) 2 puff INH Q4H PRN Albuterol (Ventolin 2.5 Mg/3 Ml Neb.Bette*) 2.5 mg INH Q4H PRN Baclofen (Lioresal Tab*) 5 mg PO TID YAZMIN Bisacodyl (Dulcolax Ec Tab*) 10 mg PO DAILY PRN Docusate Sodium (Colace Cap*) 100 mg PO DAILY PRN Enoxaparin Sodium (Lovenox(*)) 40 mg SUBCUT Q24H YAZMIN Fluoxetine HCl (Prozac Cap*) 20 mg PO QAM YAZMIN Gabapentin (Neurontin Cap(*)) 300 mg PO TID YAZMIN Hydrochlorothiazide (Hydrodiuril Tab*) 25 mg PO DAILY YAZMIN Sodium Chloride (Ns 0.9% 1000 Ml*) 1,000 mls @ 125 mls/hr IV PER RATE YAZMIN Naproxen (Naprosyn Tab*) 500 mg PO Q8H PRN Polyethylene Glycol/Electrolytes (Miralax*) 17 gm PO DAILY PRN Sodium Biphosphate/Sodium Phosphate (Fleet Enema*) 1 bottle ME DAILY PRN Vital Signs 07/10/17 07/10/17 07/10/17 14:37 15:03 15:18 Temperature 97.6 F Pulse Rate 78 76 Respiratory 16 16 16 Rate Blood Pressure 133/75 (mmHg) O2 Sat by Pulse 98 97 Oximetry 07/10/17 07/10/17 07/10/17 16:37 20:00 20:28 Temperature 97.8 F Pulse Rate 63 81 Respiratory 16 16 16 Rate Blood Pressure 158/78 (mmHg) O2 Sat by Pulse 96 96 Oximetry 07/10/17 07/10/17 07/11/17 22:10 23:21 00:10 Temperature 98.0 F Pulse Rate 63 Respiratory 18 16 16 Rate Blood Pressure 148/71 (mmHg) O2 Sat by Pulse 96 Oximetry 07/11/17 07/11/17 07/11/17 03:02 06:26 08:00 Temperature 97.5 F 98.1 F Pulse Rate 66 69 Respiratory 16 16 18 Rate Blood Pressure 138/69 153/79 (mmHg) O2 Sat by Pulse 98 98 Oximetry 07/11/17 10:01 Temperature Pulse Rate Respiratory 19 Rate Blood Pressure (mmHg) O2 Sat by Pulse Oximetry Oxygen Devices in Use Now: None Appearance: sitting in chair, NAD Eyes: No Scleral Icterus, PERRLA Ears/Nose/Mouth/Throat: NL Teeth, Lips, Gums Neck: NL Appearance and Movements; NL JVP Respiratory: Symmetrical Chest Expansion and Respiratory Effort, Clear to Auscultation Cardiovascular: NL Sounds; No Murmurs; No JVD, RRR Abdominal: NL Sounds; No Tenderness; No Distention Extremities: No Edema Skin: No Rash or Ulcers Neurological: Alert and Oriented x 3 Nutrition: Taking PO's Result Diagrams: 07/08/17 06:42 07/09/17 05:12 Additional Lab and Data: . Assess/Plan/Problems-Billing Assessment: Ms. Sofia is a 51 yo female with a PMH of ALS who was admitted on 07/07/17 with urinary retention and weakness in setting of cold and Nyquil use. - Patient Problems (1) ALS (amyotrophic lateral sclerosis) (2) Urinary retention (3) Asthma (4) Edema (5) DVT prophylaxis (6) DNR (do not resuscitate) Status and Disposition: Inpatient. Stable to be discharged to [facility].
--- NOTE | 2017-07-12 01:28 | DS ---
CC: DAYANA Saxena; Neurology * DISCHARGE SUMMARY: DATE OF ADMISSION: 07/09/17 DATE OF DISCHARGE: 07/11/17 PRIMARY CARE PROVIDER: DAYANA Saxena CONSULTATIONS WHILE IN THE HOSPITAL: Dr. Jasmina Vila, Neurology. ATTENDING PHYSICIAN: Dr. Pete Patrick * (report dictated by Nithya Riggs NP). PRIMARY DIAGNOSIS: Acute urinary retention. SECONDARY DIAGNOSES: 1. Amyotrophic lateral sclerosis. 2. Hypertension. STUDIES WHILE IN THE HOSPITAL: 1. KUB abdomen, 07/07/17, nonobstructive bowel gas pattern, large amounts of stool within the colon. Right pelvic calcification, possibly related to calcified uterine fibroid. 2. Chest x-ray, 07/07/17, no active disease. 3. Bilateral lower extremity Doppler, 07/07/17, mildly limited examination, no evidence of DVT. MEDICATIONS AT THE TIME OF DISCHARGE: New medications: 1. Albuterol nebulizer 2.5 every 4 hours as needed. 2. Albuterol HFA 2 puffs every 4 hours as needed. 3. Dulcolax 10 mg every day as needed. 4. Colace 100 mg oral daily as needed. 5. Lovenox 40 mg subcu 24 hours. 6. MiraLAX 17 g oral daily as needed. 7. Fleet enema 1 rectal as needed. Changed medication: Baclofen, decreased to 5 mg oral 3 times daily. The following medications are medications the patient came in on: 1. Naproxen 500 mg oral 8 hours as needed. 2. Hydrochlorothiazide 25 mg oral daily. 3. Neurontin 300 mg oral 3 times daily. 4. Prozac 20 mg oral daily. HISTORY OF PRESENT ILLNESS AND HOSPITAL COURSE: Ms. Sofia is a 51-year-old female with history of ALS, who presented to the emergency room on 07/07/17 with a complaint of urinary urgency and inability to empty her bladder. She has recently had a cold and was taking multiple kyqf-ozo-[id number] medications including NyQuil, Mucinex, and Alana-Clarendon. She also reported increased weakness that coincided with her upper respiratory infection. In the emergency room, a Jolly catheter was placed and 15 cc of urine was drained out. She was admitted to the medical floor for further monitoring. In regards to urinary retention, it was suspected that this was from a side effect of her medication, although progressive weakness from her ALS could not be completely ruled out. NyQuil was held and baclofen was decreased. Consultation was obtained from Neurology, please refer to their consultation for detail. Because of the significant urinary distention, the Jolly will remain in place, followed by a removal trial within 7 to 10 days. The patient did not have any difficulty, did not have any change in her kidney function with this retention. In addition , the patient had only a slightly positive UA and given the lack of signs and symptoms of infection, was not treated for a urinary tract infection. In addition, she had progressive weakness upon presentation. The patient was seen by Physical Therapy and Occupational Therapy. In addition, she had consultation from Physical Medicine and Rehab. Please refer to Dr. Massey's dictation for detail. Recommendations were to continue baclofen at current dose and continue aggressive physical therapy and occupational therapy. As of today, the patient has been accepted into PMRU and today, she is stable for transfer to there. In addition to her ALS, PT recommended Multi Podus splint and custom-fitted orthotics. For the patient's other comorbidities, she was placed on albuterol nebulizers and metered dosed inhaler for her asthma while here. The patient did present with lower extremity edema and had a lower extremity Doppler, which showed no evidence of DVT. Because of her progressive weakness, she was seen by Physical Therapy and Occupational Therapy and was deemed a candidate for PMRU. Today, she is stable for transfer there. DISCHARGE PLANS: The patient was discharged on a regular diet. The patient should follow up with Neurology as well as her primary care provider within 1 to 2 weeks of discharge. The patient should also have a void trial within 7 to 10 days. This is a summarized report of a complex medical history and hospital stay. For more details, please see the entire medical record. TIME SPENT: Time for this discharge was 50 minutes and 25 minutes was spent with the patient discussing medication, discharge, and followup instructions. CONDITION ON DISCHARGE: Stable. NITHYA RIGGS NP [id number]/[facility] #: [id number] JOE
== END 2017-07-11 10:45 | DRG 696 ==
LOC: ED 11:08 → MED 14:35 → OBSVTOIN 07-09 07:49
PROVIDERS: ADMIT Internal Medicine; ATTEND Internal Medicine
PROC: 0T9B70Z Drainage of Bladder with Drainage Device, Via Natural or Artificial Opening (ICD-10-PCS; principal; 2017-07-09)
DX: R33.9 Retention of urine, unspecified (principal); G12.21 Amyotrophic lateral sclerosis; I10 Essential (primary) hypertension; Z79.01 Long term (current) use of anticoagulants; R53.1 Weakness; J06.9 Acute upper respiratory infection, unspecified; R60.0 Localized edema; Z88.8 Allergy status to other drugs, medicaments and biological substances; Z87.891 Personal history of nicotine dependence; Y92.9 Unspecified place or not applicable; E66.9 Obesity, unspecified; Z82.49 Family history of ischemic heart disease and other diseases of the circulatory system; T39.1X5A Adverse effect of 4-Aminophenol derivatives, initial encounter; J45.909 Unspecified asthma, uncomplicated; Z66 Do not resuscitate; G43.909 Migraine, unspecified, not intractable, without status migrainosus; K59.09 Other constipation; Z68.33 Body mass index [BMI] 33.0-33.9, adult
CPT/HCPCS: 36415; 71010; 74000; 80048; 80053; 81003; 81015; 82550; 83605; 83735; 84443; 84484; 85025; 87086; 90686; 93005; 93970; 94640; 94760; A9270-GY; G0378; G8978-GP-CM; G8979-GP-CJ; J1650

== ENCOUNTER 2017-07-11 07:35 | Inpatient (IN) | payer MEDICARE ==
[2017-07-11] MEDS ORDERED: Senna TAB PO PRN (11:17)
[2017-07-11] MEDS ORDERED: Bisacodyl SUPP* 10 MG SUPP PR PRN (11:17)
[2017-07-11] MEDS ORDERED: Albuterol HFA INHALER* 8 gm MDI INH PRN (11:28)
[2017-07-11] MEDS ORDERED: Polyethylene Glycol 3350* 17 GM PACKET PO PRN (11:29)
[2017-07-11] MEDS ORDERED: Baclofen TAB* 10 MG PO SCH (14:00)
[2017-07-11] MEDS: Gabapentin CAP(*) 300 MG PO SCH ×2 (14:31→20:17)
[2017-07-11] MEDS: Enoxaparin(*) 40 MG/0.4 ML SYR SUBCUT SCH (16:29)
[2017-07-11] MEDS: Docusate CAP* 100 MG PO SCH (20:17)
[2017-07-11] MEDS: Naproxen TAB* 250 MG PO PRN (20:17)
[2017-07-11] MEDS: tiZANidine TAB* 2 MG PO SCH (20:17)
[2017-07-11] MEDS: Senna TAB PO SCH (20:18)
--- NOTE | 2017-07-11 22:28 | HP ---
ADMISSION HISTORY AND PHYSICAL: DATE OF ADMISSION: 07/11/17 REASON FOR ADMISSION: Inability to ambulate; ALS. HISTORY OF PRESENT ILLNESS: Iris Sofia is a 51-year-old female. She was diagnosed with ALS this summer, but has had a 2-year history of lower extremity spasticity with progressive weakness in her legs and arms. She had a long workup starting about a year and a half ago. She has seen Dr. Cruz in the past. This past summer, she was sent up to see Dr. Mcnamara. She, as mentioned, was diagnosed with ALS this summer. She had been able to transfer by herself and ambulate short distances about 5 to 10 feet. She had also been able to ascend and descend 3 steps in her camper to get up and into the bathroom. She does have plantar flexion contractures at both ankles and so she tended to walk on the tips of her toes or the metatarsal heads. There was a rapid decline of function starting around the first week of June. She lost the ability to stand and transfer. She was also having difficulty voiding. She was brought to the emergency room and found to have urinary retention. A Jolly catheter was placed. Over the summer, she was started on baclofen and slowly titrated up to 10 mg 3 times a day. It did not have a great effect on her spasticity. I had seen the patient in consultation, July 08. At that time, she had significant spasticity in her lower extremities. I recommended that she might benefit from rehab to learn different ways to transfer. She has needs in both physical and occupational therapy. She is now being admitted for inpatient rehab, so that she might return to independent living. PAST MEDICAL HISTORY: Significant for: 1. Asthma. 2. Migraine headaches. CURRENT MEDICATIONS: Include: 1. Baclofen 5 mg 3 times a day. 2. Prozac 20 mg daily for pseudobulbar symptoms. 3. Neurontin 300 mg 3 times a day. 4. Hydrochlorothiazide. 5. Naprosyn. ALLERGIES: PAROXETINE. SOCIAL HISTORY: She is a nonsmoker, nondrinker. She lives with her in a fifth-wheel camper. Her daughter and grand-daughter are living in the house that she has up here. Her plan is to take the camper to [place]. She does have an electric wheelchair. REVIEW OF SYSTEMS: The patient reports no current shortness of breath or chest pain. PHYSICAL EXAMINATION VITAL SIGNS: The patient's temperature is 98.5, blood pressure is 160/74, pulse is 80, respirations 18. HEENT: Her extraocular movements are intact. Tongue is midline. NECK: Supple. LUNGS: Sounded clear to auscultation bilaterally. HEART: Sounds are regular. S1 and S2 audible. ABDOMEN: Soft and nontender. EXTREMITIES: There were fasciculations in the left quadriceps muscle. Her muscle tone is greatly decreased from where it was on Monday afternoon. NEUROLOGIC: The patient is awake, alert, and oriented. Muscle strength in her upper extremities is about 4/5, in her lower extremities are about 2+ to 3/5. FUNCTIONAL EXAM: The patient transfers with max assist to dependence. ASSESSMENT: Amyotrophic lateral sclerosis with increasing weakness in her lower extremities. PLAN: Integrate her into a comprehensive and therapeutic rehab program. We will have the following goals: 1. Physical Therapy will work with the patient, they are going to work on functional transfer training, ambulation training, wheelchair mobilities, slide board transfers. 2. Occupational Therapy will see the patient and work on her toilet transfers, toileting, and self-care as well as dressing and bathing. 3. Lovenox for DVT prophylaxis. 4. We will continue her Prozac for pseudobulbar affect. We may consider a trial of Nuedexta while she is here. 5. Continue Jolly catheter. 6. Continue Neurontin for neuropathic pain. 7. We are going to stop her baclofen and give a trial of tizanidine while she is here. 8. Family training as appropriate. 9. Advanced Directives: the patient has a MOLST form and requests DNR 10. We will see if she can bring in her electric wheelchair, so we can practice transferring in and out of that. 11. Home with appropriate services. ESTIMATED LENGTH OF STAY: 7 days. [id number]/[facility] #: [id number] [facility]
[2017-07-12 06:36] LABS: Hematocrit 39 % (35-47); Hemoglobin 13.3 g/dl (12.0-16.0); Mean Corpuscular HGB Conc 35 g/dl (31-36); Mean Corpuscular Hemoglobin 29 pg (27-31); Mean Corpuscular Volume 85 fL (80-97); Mean Platelet Volume 8 um3 (7.4-10.4); Red Blood Count 4.55 10^6/ul (4.0-5.4); Red Cell Distribution Width 14 % (10.5-15); White Blood Count 5.1 10^3/ul (3.5-10.8)
[2017-07-12 06:54] LABS: Albumin 3.9 g/dL (3.2-5.2); BUN/Creatinine Ratio 17.7 (8-20); Calcium 9.3 mg/dL (8.6-10.3); EGFR African American 129.5 (>60); EGFR Non-African American 100.7 (>60); Globulin 2.9 g/dL (2-4); Potassium 3.6 mmol/L (3.5-5.0); Total Bilirubin 0.5 mg/dL (0.2-1.0); Total Protein 6.8 g/dL (6.4-8.9)
[2017-07-12] MEDS: tiZANidine TAB* 2 MG PO SCH ×2 (08:04→20:44)
[2017-07-12] MEDS: Gabapentin CAP(*) 300 MG PO SCH ×3 (08:04→20:44)
[2017-07-12] MEDS: Hydrochlorothiazide TAB* 25 MG PO SCH (08:04)
[2017-07-12] MEDS: FLUoxetine CAP* 20 MG PO SCH (08:05)
[2017-07-12] MEDS: Docusate CAP* 100 MG PO SCH ×2 (08:05→20:42)
[2017-07-12] MEDS: Naproxen TAB* 250 MG PO PRN (14:44)
[2017-07-12] MEDS: Enoxaparin(*) 40 MG/0.4 ML SYR SUBCUT SCH (16:46)
[2017-07-12] MEDS: Senna TAB PO SCH (20:42)
[2017-07-13] MEDS: Gabapentin CAP(*) 300 MG PO SCH ×3 (09:56→20:21)
[2017-07-13] MEDS: Hydrochlorothiazide TAB* 25 MG PO SCH (09:57)
[2017-07-13] MEDS: tiZANidine TAB* 2 MG PO SCH ×3 (09:57→20:19)
[2017-07-13] MEDS: FLUoxetine CAP* 20 MG PO SCH (09:57)
[2017-07-13] MEDS: Docusate CAP* 100 MG PO SCH ×2 (09:58→20:20)
[2017-07-13] MEDS: Acetaminophen TAB* 325 MG PO PRN (11:11)
[2017-07-13] MEDS: Enoxaparin(*) 40 MG/0.4 ML SYR SUBCUT SCH (18:56)
[2017-07-13] MEDS: Senna TAB PO SCH (20:20)
[2017-07-14] MEDS: tiZANidine TAB* 2 MG PO SCH ×3 (09:07→20:41)
[2017-07-14] MEDS: Hydrochlorothiazide TAB* 25 MG PO SCH (09:07)
[2017-07-14] MEDS: Gabapentin CAP(*) 300 MG PO SCH ×3 (09:08→20:41)
[2017-07-14] MEDS: FLUoxetine CAP* 20 MG PO SCH (09:08)
[2017-07-14] MEDS: Docusate CAP* 100 MG PO SCH ×2 (09:44→20:38)
--- NOTE | 2017-07-14 12:43 | PMRUTEAM ---
PMRU: Goals Current Status: Nursing: Current Status Skin Deviations [Left Breast] Rash Skin Deviation Description [ no reddness noted Left Breast] Bladder Current Status Allen catheter in place Bowel Current Status last bm 07/14 Nutrition Current Status excellent Physical Therapy: Current Status Bed Mobility Assistance Not Tested Transfer Moblility Assistance Contact Guard Assist,Min Assist Transfer/Bed Mobility Rolling Walker Recommended Devices Ambulation Assistance Min Assist of 1 or 2 Ambulation Assistive Devices Rolling Walker Number of Feet Patient 100 Ambulated stairs not tested yet. Occupational Therapy: Current Status Upper Body Dressing Supervision Lower Body Dressing Contact Guard Assist,Min Assist Bathing Min Assist Toileting Contact Guard Assist,Min Assist 1 or 2 Toilet Transfer Contact Guard Assist,Min Assist Shower Transfer Min Assist,Mod Assist Eating Supervision Rec Therapy: Current Status Summary of Assessment and Pt. was very tearful in conversation from the Clinical Impression beginning. Pt. was not forth coming with interests but answered direct questions about activities when directly asked. Time spent with pt. was to build rapport and allow for expression. Pt. was quiet during interaction while remaining tearful. Pt. was open to continued leisure visits. Offered route relief driver consult and other interventions, pt. states she will let staff know if she feels they would be helpful. Pt. did state that she thought an increase in her antidepressant might be helpful. Treatment Goals Pt. will engage in leisure activities while on the unit. Treatment Plan Provide RT services and encourage involvement. Meet with pt. daily to allow for expression and to build rapport. Offer additional interventions daily. Social Work: Current Status Discharge Plan return home with home care svs and family support Potential for Family Training pt's family is involved and supportive Anticipated Discharge Home Destination Discharge With home care svs and family support Goals: Physical Therapy: Initial Goals Bed Mobility Assistance Independent Transfer Mobility Assistance Independent Transfer/Bed Mobility None,Rolling Walker Recommended Devices Ambulation Independent Ambulation Recommended Devices Rolling Walker Ambulation Distance 10 Wheelchair Propulsion Ability Independent Wheelchair Distance (ft) 300 Stairs Assistance Mod Assist Number of Stairs 4 Occupational Therapy: Initial Goals Goals to be Completed in (Days 7-10 ) Upper Body Bathing Routine Independent Lower Body Bathing Routine Modified Independent with Upper Body Dressing Routine Independent Lower Body Dressing Routine Modified Independent with Toilet Hygeine and Clothing Modified Independent with Management Routine Toilet Transfer Routine Modified Independent with Step-In Shower Transfer Supervision/Set Up Routine Functional Transfers for ADL Modified Independent with Grooming Routine Independent Feeding Routine Independent Nursing: Goals Nutrition Goal excelent Social Work: Goals Discharge Plan return home with home care svs and family support Potential for Family Training pt's family is involved and supportive Anticipated Discharge Home Destination Discharge With home care svs and family support Care Plan: Care Plan ADL's - Improve/Maintain Start: 07/11/17 15:58 Freq: DAILY@0400,1600 Status: Active Target: Activity Type Activity Date Activity User E-Sign Co-Sign Detail Recorded Client Recorded Date Recorded By Document 07/13/17 16:07 [id number] 07/13/17 16:07 [id number] 07/13/17 16:07 PMRU Outcome: ADL's/ADL Transfers Orders/Interventions Occupational Therapy Evaluation & Treatment Communication Tool in Patient Room Device Yes Address Deficits Secondary To: ALS Patient to receive OT 5x/wk for 60-120 Therex min/day Self Care Management Group Therapy Neuromuscular ReEducation UE/LE ADL's with Assist Yes: Ponce ADL Transfers with Assist Yes: Ponce, S for shower transfers Toileting: Transfers,Clothing Management Yes: Ponce ,Hygeine w/Assist Light Kitchen/Laundry w/Assist No Progression Toward Outcome/Goals Progressing Outcome/Goals Met Pt with increased independence with toileting/ toilet transfers. Recommend SPT w /c to/from toilet with gait belt and grab bars with nursing staff. Gastrointestinal-Improve/Maintain Start: 07/11/17 22:25 Freq: DAILY@0400,1600 Status: Active Target: Activity Type Activity Date Activity User E-Sign Co-Sign Detail Recorded Client Recorded Date Recorded By Document 07/14/17 05:02 [id number] 07/14/17 05:03 [id number] 07/14/17 05:02 Outcome: Gastrointestinal Outcome/Goals Maintain/ Achieve Bowel Regularity in Accordance with Pt's Baseline Progression Toward Outcome/Goals Progressing Genitourinary-Improve/Maintain Start: 07/11/17 22:25 Freq: DAILY@0400,1600 Status: Active Target: Activity Type Activity Date Activity User E-Sign Co-Sign Detail Recorded Client Recorded Date Recorded By Document 07/14/17 05:02 [id number] 07/14/17 05:03 [id number] 07/14/17 05:02 Outcome: Genitourinary Outcome/Goals Maintain/ Achieve Adequate Urinary Output Remain Free of Hospital- Acquired UTI Progression Toward Outcome/Goals Progressing Outcome/Goals Met Comment allen in place Mobility-Improve/Maintain Start: 07/11/17 22:25 Freq: DAILY@0400,1600 Status: Active Target: Activity Type Activity Date Activity User E-Sign Co-Sign Detail Recorded Client Recorded Date Recorded By Document 07/14/17 05:02 [id number] 07/14/17 05:03 [id number] 07/14/17 05:02 Outcome: Mobility Outcome/Goals Maintain/ Achieve Baseline Mobility Status Improve Mobility Status Demonstrates Proper Use of Assistive Devices Progression Toward Outcome/Goals Progressing Neurological-Improve/Maintain Start: 07/11/17 22:25 Freq: DAILY@0400,1600 Status: Active Target: Activity Type Activity Date Activity User E-Sign Co-Sign Detail Recorded Client Recorded Date Recorded By Document 07/14/17 05:02 [id number] 07/14/17 05:03 [id number] 07/14/17 05:02 Outcome: Neurological Outcome/Goals Maintain/ Achieve Baseline Neurological Status Demonstrate Knowledge of Prevention/Tx of Neuro Disorders/ Complication Maintain/ Improve Strength/ROM Progression Toward Outcome/Goals Progressing Pain/Comfort-Improve/Maintain Start: 07/11/17 22:25 Freq: DAILY@0400,1600 Status: Active Target: Activity Type Activity Date Activity User E-Sign Co-Sign Detail Recorded Client Recorded Date Recorded By Document 07/14/17 05:02 [id number] 07/14/17 05:03 [id number] 07/14/17 05:02 Outcome: Pain/Comfort Outcome/Goals Demonstrates Knowledge and Use of Available Comfort Measures Progression Toward Outcome/Goals Progressing Outcome/Goals Met Comment denies pain Safety- Improve/Maintain Start: 07/11/17 22:25 Freq: DAILY@0400,1600 Status: Active Target: Activity Type Activity Date Activity User E-Sign Co-Sign Detail Recorded Client Recorded Date Recorded By Document 07/14/17 05:02 [id number] 07/14/17 05:03 [id number] 07/14/17 05:02 Outcome: Safety Outcome/Goals Remain Free of Injury or Harm Cooperates with Safety Measures for Least Restrictive Environment Progression Toward Outcome/Goals Progressing Medicine Note: Length of Stay: [5 more days] Anticipated Discharge Destination: Home Tentative Discharge Date: [07/19/17] Discharged to: [home with family support]
[2017-07-14] MEDS: Naproxen TAB* 250 MG PO PRN (15:59)
[2017-07-14] MEDS: Enoxaparin(*) 40 MG/0.4 ML SYR SUBCUT SCH (17:17)
[2017-07-14] MEDS: Senna TAB PO SCH (20:38)
[2017-07-15] MEDS: Docusate CAP* 100 MG PO SCH ×2 (08:52→20:01)
[2017-07-15] MEDS: FLUoxetine CAP* 20 MG PO SCH (08:52)
[2017-07-15] MEDS: Hydrochlorothiazide TAB* 25 MG PO SCH (08:53)
[2017-07-15] MEDS: tiZANidine TAB* 2 MG PO SCH ×3 (08:53→20:01)
[2017-07-15] MEDS: Gabapentin CAP(*) 300 MG PO SCH ×3 (08:53→20:01)
[2017-07-15] MEDS: Enoxaparin(*) 40 MG/0.4 ML SYR SUBCUT SCH (17:35)
[2017-07-15] MEDS: Senna TAB PO SCH (20:01)
[2017-07-16] MEDS: tiZANidine TAB* 2 MG PO SCH ×3 (08:04→21:11)
[2017-07-16] MEDS: Gabapentin CAP(*) 300 MG PO SCH ×3 (08:05→21:11)
[2017-07-16] MEDS: Hydrochlorothiazide TAB* 25 MG PO SCH (08:05)
[2017-07-16] MEDS: Docusate CAP* 100 MG PO SCH ×2 (08:05→21:11)
[2017-07-16] MEDS: FLUoxetine CAP* 20 MG PO SCH (08:05)
[2017-07-16] MEDS: Enoxaparin(*) 40 MG/0.4 ML SYR SUBCUT SCH (16:29)
[2017-07-16] MEDS: Senna TAB PO SCH (21:11)
[2017-07-17] MEDS: Acetaminophen TAB* 325 MG PO PRN (05:22)
[2017-07-17] MEDS: Hydrochlorothiazide TAB* 25 MG PO SCH (08:31)
[2017-07-17] MEDS: tiZANidine TAB* 2 MG PO SCH ×3 (08:31→20:20)
[2017-07-17] MEDS: Gabapentin CAP(*) 300 MG PO SCH ×3 (08:31→20:17)
[2017-07-17] MEDS: FLUoxetine CAP* 20 MG PO SCH (08:31)
[2017-07-17] MEDS: Docusate CAP* 100 MG PO SCH ×2 (08:31→20:16)
[2017-07-17] MEDS ORDERED: Miconazole TOPICAL CREAM 2%* 30 GM TOPICAL ONE (11:40)
[2017-07-17] MEDS: Enoxaparin(*) 40 MG/0.4 ML SYR SUBCUT SCH (16:46)
[2017-07-17] MEDS: Senna TAB PO SCH (20:16)
[2017-07-18] MEDS: Hydrochlorothiazide TAB* 25 MG PO SCH (08:17)
[2017-07-18] MEDS: tiZANidine TAB* 2 MG PO SCH ×3 (08:17→20:18)
[2017-07-18] MEDS: Miconazole TOPICAL CREAM 2%* 30 GM TOPICAL SCH (08:17)
[2017-07-18] MEDS: FLUoxetine CAP* 20 MG PO SCH (08:18)
[2017-07-18] MEDS: Gabapentin CAP(*) 300 MG PO SCH ×3 (08:18→20:16)
[2017-07-18] MEDS: Docusate CAP* 100 MG PO SCH ×2 (08:18→20:16)
--- NOTE | 2017-07-18 12:44 | PMRUTEAM ---
PMRU: Goals Current Status: Nursing: Current Status Skin Deviations [Left Breast] Rash Skin Deviation Description [ no redness noted Left Breast] Bladder Current Status Allen catheter in place Bowel Current Status last bm 07/18/17 Nutrition Current Status excelent Physical Therapy: Current Status Bed Mobility Assistance Supervision Transfer Moblility Assistance Contact Guard Assist,Min Assist Transfer/Bed Mobility Rolling Walker Recommended Devices Ambulation Assistance Supervision,Contact Guard Assist Ambulation Assistive Devices Rolling Walker Number of Feet Patient 110 Ambulated Stairs Assistance Contact Guard Assist,Min Assist Stairs Recommended Devices Two Rails Number of Stairs 3 Manual Wheelchair Control/ Bilateral UE's Technique Wheelchair Propulsion Ability Independent Wheelchair Distance (ft) 120 Objective Comments initiateds stair training with stepup/taps on 1/2 height stair. patient needs significant support of rails in this skill, and stair ascent was not completed. will conitnue to monitor and attempt stair training as appropriate, however at this point it is not likely that patient will be able to ascend the 3 stairs in her home without rails in order to reach the bathroom. alternative means will likely need to be investigated, though training willl continue. Occupational Therapy: Current Status Upper Body Dressing Independent Upper Body Dressing Progress seated Lower Body Dressing Contact Guard Assist Lower Body Dressing Progress for balance in standing, use of last waxer/sock aid prn, able to thread allen Bathing Contact Guard Assist Bathing Progress for balance in standing Toileting Contact Guard Assist Toileting Progress for balance in standing Toilet Transfer Contact Guard Assist,Min Assist Shower Transfer Contact Guard Assist Shower Transfer Progress SPT w/c to/from shower bench +grab bar/gait belt Eating Independent Rec Therapy: Current Status Summary of Assessment and RT assessment complete and pt. is aware of Clinical Impression services. Pt. has visitors during RT time but is open to visits and is engaged in them. Improvement in mood observed. Treatment Goals Pt. will engage in leisure activities while on the unit. Treatment Plan Provide RT services and encourage involvement. Meet with pt. daily to allow for expression and to build rapport. Offer additional interventions daily. Social Work: Current Status Discharge Plan return home with home care svs and family support Potential for Family Training pt's attended family training today Anticipated Discharge Home Destination Discharge With home care svs and family support Nutrition: Current Status Monitoring independent w/eating meals; consuming nearly 100% of regular diet w/each meal. No noted dysphagia at this time. BM 07/16. Labs all wnl last week (). No specific nutrition intervention has been planned. Possible d/c 07/19. Goals: Physical Therapy: Initial Goals Bed Mobility Assistance Independent Transfer Mobility Assistance Independent Transfer/Bed Mobility None,Rolling Walker Recommended Devices Ambulation Independent Ambulation Recommended Devices Rolling Walker Ambulation Distance 10 Wheelchair Propulsion Ability Independent Wheelchair Distance (ft) 300 Stairs Assistance Mod Assist Number of Stairs 4 Physical Therapy: Updated Goals Bed Mobility Assistance Independent Transfer Mobility Assistance Independent Transfer/Bed Mobility None,Rolling Walker,EZ Stand Recommended Devices Ambulation Assistance Independent Ambulation Distance (ft) 10 Wheelchair Propulsion Ability Independent Wheelchair Distance (ft) 300 Stairs Assistance Mod Assist Number of Stairs 4 Occupational Therapy: Initial Goals Goals to be Completed in (Days 7-10 ) Upper Body Bathing Routine Independent Lower Body Bathing Routine Modified Independent with Upper Body Dressing Routine Independent Lower Body Dressing Routine Modified Independent with Toilet Hygeine and Clothing Modified Independent with Management Routine Toilet Transfer Routine Modified Independent with Step-In Shower Transfer Supervision/Set Up Routine Functional Transfers for ADL Modified Independent with Grooming Routine Independent Feeding Routine Independent Nursing: Goals Nutrition Goal excelent Nutrition: Goals Intervention Goals 1. adequate po intake to support stable wt and lean body mass without add'l wt gain 2. maintain bowel regularity without c/o constipation (or diarrhea) Social Work: Goals Discharge Plan return home with home care svs and family support Potential for Family Training pt's attended family training today Anticipated Discharge Home Destination Discharge With home care svs and family support Care Plan: Care Plan ADL's - Improve/Maintain Start: 07/11/17 15:58 Freq: DAILY@0400,1600 Status: Active Target: Activity Type Activity Date Activity User E-Sign Co-Sign Detail Recorded Client Recorded Date Recorded By Document 07/17/17 14:52 [id number] 07/17/17 14:52 [id number] 07/17/17 14:52 PMRU Outcome: ADL's/ADL Transfers Orders/Interventions Occupational Therapy Evaluation & Treatment Communication Tool in Patient Room Device Yes Address Deficits Secondary To: ALS Patient to receive OT 5x/wk for 60-120 Therex min/day Self Care Management Group Therapy Neuromuscular ReEducation UE/LE ADL's with Assist Yes: Ponce ADL Transfers with Assist Yes: Ponce, S for shower transfers Toileting: Transfers,Clothing Management Yes: Ponce ,Hygeine w/Assist Light Kitchen/Laundry w/Assist No Progression Toward Outcome/Goals Progressing Outcome/Goals Met Pt participated well, able to broadcast maintenance technician shower to complete perineal hygiene with CGA-Jose Manuel for balance this date. Gastrointestinal-Improve/Maintain Start: 07/11/17 22:25 Freq: DAILY@0400,1600 Status: Active Target: Activity Type Activity Date Activity User E-Sign Co-Sign Detail Recorded Client Recorded Date Recorded By Document 07/18/17 03:08 [id number] 07/18/17 03:08 [id number] 07/18/17 03:08 Outcome: Gastrointestinal Outcome/Goals Maintain/ Achieve Bowel Regularity in Accordance with Pt's Baseline Remain Free of Emesis Progression Toward Outcome/Goals Progressing Genitourinary-Improve/Maintain Start: 07/11/17 22:25 Freq: DAILY@0400,1600 Status: Active Target: Activity Type Activity Date Activity User E-Sign Co-Sign Detail Recorded Client Recorded Date Recorded By Document 07/18/17 03:08 [id number] 07/18/17 03:08 [id number] 07/18/17 03:08 Outcome: Genitourinary Outcome/Goals Maintain/ Achieve Adequate Urinary Output Remain Free of Hospital- Acquired UTI Progression Toward Outcome/Goals Progressing Outcome/Goals Met Maintain/ Achieved Adequate Urinary Output Outcome/Goals Met Comment allen in place Mobility-Improve/Maintain Start: 07/11/17 22:25 Freq: DAILY@0400,1600 Status: Active Target: Activity Type Activity Date Activity User E-Sign Co-Sign Detail Recorded Client Recorded Date Recorded By Document 07/18/17 03:08 [id number] 07/18/17 03:08 [id number] 07/18/17 03:08 Outcome: Mobility Outcome/Goals Improve Mobility Status Demonstrates Proper Use of Assistive Devices Progression Toward Outcome/Goals Progressing Outcome/Goals Met Demonstrates Proper Use of Assistive Devices Neurological-Improve/Maintain Start: 07/11/17 22:25 Freq: DAILY@0400,1600 Status: Active Target: Activity Type Activity Date Activity User E-Sign Co-Sign Detail Recorded Client Recorded Date Recorded By Document 07/18/17 03:08 [id number] 07/18/17 03:08 [id number] 07/18/17 03:08 Outcome: Neurological Outcome/Goals Maintain/ Achieve Baseline Neurological Status Prevent Avoidable Neurological Decline Maintain/ Improve Strength/ROM Progression Toward Outcome/Goals Progressing Outcome/Goals Met Maintain/ Achieved Baseline Neurological Status Pain/Comfort-Improve/Maintain Start: 07/11/17 22:25 Freq: DAILY@0400,1600 Status: Active Target: Activity Type Activity Date Activity User E-Sign Co-Sign Detail Recorded Client Recorded Date Recorded By Document 07/18/17 03:08 [id number] 07/18/17 03:08 [id number] 07/18/17 03:08 Outcome: Pain/Comfort Outcome/Goals Demonstrates Knowledge and Use of Available Comfort Measures Achieves Acceptable Comfort/Pain Level as Determined by Patient/Condit Progression Toward Outcome/Goals Progressing Outcome/Goals Met Demonstrated Knowledge and Use of Available Comfort Measures Achieved Acceptable Comfort/Pain Level as Determined by Patient/Condit Outcome/Goals Met Comment pt sleeping Safety- Improve/Maintain Start: 07/11/17 22:25 Freq: DAILY@0400,1600 Status: Active Target: Activity Type Activity Date Activity User E-Sign Co-Sign Detail Recorded Client Recorded Date Recorded By Document 07/18/17 03:08 [id number] 07/18/17 03:08 [id number] 07/18/17 03:08 Outcome: Safety Outcome/Goals Remain Free of Injury or Harm Cooperates with Safety Measures for Least Restrictive Environment Progression Toward Outcome/Goals Progressing Outcome/Goals Met Cooperates with Safety Measures for Least Restrictive Environment Medicine Note: Length of Stay: 1 day Anticipated Discharge Destination: Home Tentative Discharge Date: 07/19/17 Discharged to: home
[2017-07-18] MEDS: Enoxaparin(*) 40 MG/0.4 ML SYR SUBCUT SCH (17:34)
[2017-07-18] MEDS: Senna TAB PO SCH (20:16)
[2017-07-18] MEDS: Naproxen TAB* 250 MG PO PRN (20:19)
[2017-07-19 05:50] VITALS: BP 144/77
[2017-07-19] MEDS: Docusate CAP* 100 MG PO SCH (08:08)
[2017-07-19] MEDS: Gabapentin CAP(*) 300 MG PO SCH (08:08)
[2017-07-19] MEDS: tiZANidine TAB* 2 MG PO SCH (08:08)
[2017-07-19] MEDS: Hydrochlorothiazide TAB* 25 MG PO SCH (08:08)
[2017-07-19] MEDS: FLUoxetine CAP* 20 MG PO SCH (08:08)
[2017-07-19 09:41] LABS: Hematocrit 40 % (35-47); Hemoglobin 13.7 g/dl (12.0-16.0); Mean Corpuscular HGB Conc 34 g/dl (31-36); Mean Corpuscular Hemoglobin 30 pg (27-31); Mean Corpuscular Volume 87 fL (80-97); Mean Platelet Volume 9 um3 (7.4-10.4); Red Blood Count 4.61 10^6/ul (4.0-5.4); Red Cell Distribution Width 14 % (10.5-15); White Blood Count 4.5 10^3/ul (3.5-10.8)
[2017-07-19] MEDS: Miconazole TOPICAL CREAM 2%* 30 GM TOPICAL SCH (09:48)
[2017-07-19 09:53] LABS: Albumin 4.3 g/dL (3.2-5.2); BUN/Creatinine Ratio 25.4 (8-20); Calcium 9.7 mg/dL (8.6-10.3); EGFR African American 126.6 (>60); EGFR Non-African American 98.5 (>60); Potassium 3.8 mmol/L (3.5-5.0); Total Bilirubin 0.5 mg/dL (0.2-1.0); Total Protein 7.3 g/dL (6.4-8.9)
--- NOTE | 2017-07-20 06:11 | DS ---
CC: DAYANA Saxena with [facility]; Dr. Anna Cruz.* DISCHARGE SUMMARY: DATE OF ADMISSION: 07/11/17 DATE OF DISCHARGE: 07/19/17 DISCHARGE DIAGNOSES: 1. Amyotrophic lateral sclerosis. 2. Spasticity. 3. Bladder retention. 4. Asthma. 5. Migraine headaches. 6. Pseudobulbar affect. HISTORY OF ILLNESS AND HOSPITAL COURSE: For complete history of the events leading up to her rehab stay, please see the history and physical dictated by me on 07/11/17. While on the rehab unit, the patient was noted to have significantly less tone than she did on the acute medical service. It was felt that bladder decompression contributed greatly to her change in lower extremity muscle tone. She did have her baclofen stopped and was started on tizanidine. She tolerated this without difficulty. She had significantly more range of motion in her ankles while on the rehab unit. She developed some vaginal discharge and was started on Monistat for this. Otherwise, she was medically stable. The patient was seen by both Physical and Occupational Therapy and made good gains with both disciplines. With physical therapy at the time of admission, the patient required mod assist of 2 people for lower body dressing and max assist for toileting, mod assist of 2 people to do a toilet transfer. By the time of discharge, the patient was contact guard to supervision for transfers. She was able to ambulate 50 feet with contact guard to supervision. She was modified independent in dressing, toilet transfers were contact guard supervision. The patient had family training prior to discharge. She was discharged home 07/19/17. DISCHARGE DIET: Regular. DISCHARGE MEDICATIONS: 1. Ventolin HFA inhaler 2 puffs every 4 hours as needed. 2. Prozac 20 mg daily. 3. Gabapentin 300 mg 3 times a day. 4. Hydrochlorothiazide 25 mg daily. 5. Monistat 1 application vaginally for 5 days. 6. MiraLAX 17 g in water as needed. 7. Tizanidine 2 mg 3 times a day. SERVICES AFTER DISCHARGE: The patient did not wish to get any home services after discharge followup. The patient is planning to move to [place]. She will have a new primary care doctor in [place] in [place]. She will also follow up with the [facility] about getting possible Multi Podus Boot. She can also follow up with her neurologist, Dr. Anna Cruz, as needed. [id number]/[facility] #: [id number] JOE
== END 2017-07-19 10:50 | disposition home or self-care (01) | DRG 57 ==
LOC: PMRU 10:43
PROVIDERS: ADMIT Physical Medicine & Rehabilitation; ATTEND Physical Medicine & Rehabilitation
PROC: F07Z5ZZ Bed Mobility Treatment (ICD-10-PCS; principal; 2017-07-11)
PROC: F07Z9ZZ Gait Training/Functional Ambulation Treatment (ICD-10-PCS; 2017-07-11)
PROC: F07Z8ZZ Transfer Training Treatment (ICD-10-PCS; 2017-07-11)
PROC: F07Z4ZZ Wheelchair Mobility Treatment (ICD-10-PCS; 2017-07-11)
PROC: F08Z0ZZ Bathing/Showering Techniques Treatment (ICD-10-PCS; 2017-07-11)
PROC: F08Z1ZZ Dressing Techniques Treatment (ICD-10-PCS; 2017-07-11)
PROC: F08Z3ZZ Feeding/Eating Treatment (ICD-10-PCS; 2017-07-11)
DX: G12.21 Amyotrophic lateral sclerosis (principal); F48.2 Pseudobulbar affect; R25.2 Cramp and spasm; R33.9 Retention of urine, unspecified; J45.909 Unspecified asthma, uncomplicated; G43.909 Migraine, unspecified, not intractable, without status migrainosus; M72.2 Plantar fascial fibromatosis; Z79.899 Other long term (current) drug therapy; Z88.8 Allergy status to other drugs, medicaments and biological substances
CPT/HCPCS: 36415; 80053; 85025; A9270-GY; J1650